=== PATIENT | female | born 1945 | race Caucasian/White ===

== ENCOUNTER 2019-03-21 00:19 | Day surgery (SDC) | payer MEDICARE, SELFPAY ==
[2019-03-19 09:25] VITALS: BMI 39.4
--- NOTE | 2019-03-21 08:51 | PM.HPGS ---
History of Present Illness History of Present Illness Consent: Risks, benefits, and alternatives have been discussed and questions answered. Patient agrees to proceed with procedure. Chief complaint: Hx Of Polyps Narrative: Lissette Austin is a 73 year old female with history of villous adenoma of the rectum [facility] Past Medical History Medical History Anemia Back pain CHF (congestive heart failure) Dementia DVT (deep venous thrombosis) Fractures elbow GERD (gastroesophageal reflux disease) Hypertension Joint pain Murmur Peripheral neuropathy Rectal polyp Sleep apnea Type 2 diabetes mellitus Urinary incontinence UTI (urinary tract infection) Surgical History Surgical History History of back surgery Hx of appendectomy Hx of cholecystectomy Family History Family History Mother Family history of diabetes mellitus in first degree relative Family history of coronary artery disease Family history of arthritis Family history of congestive heart failure Family history of heart disease in male family member before age 55 Diabetes mellitus Hypertension Father Family history of renal failure Family history of kidney disease Family history of arthritis Diabetes mellitus Grandparent Cerebrovascular accident Family history of hearing loss Sibling Family history of Alzheimer's disease Diabetes mellitus Other Family history of lupus erythematosus Family history of malignant neoplasm of breast Family history of malignant neoplasm of ovary Family history of obesity Social History Social History Smoking status: Never smoker Second hand tobacco smoke exposure: No Alcohol intake: never Substance use: never Substance use type: does not use Gender identity (if verbalized by the patient): Female Meds Home Medications and Allergies Home Medications Medication Instructions Recorded Confirmed Type aripiprazole 5 mg tablet 5 mg PO DAILY 12/18/18 03/19/19 History aspirin 81 mg tablet,delayed 81 mg PO DAILY 12/18/18 03/19/19 History release blood sugar diagnostic #10 each 12/18/18 History gabapentin 300 mg capsule 300 mg PO TID 12/18/18 03/19/19 History nystatin-triamcinolone 100,000 1 applic TOPICAL BID 12/18/18 03/19/19 History unit/g-0.1 % topical cream omega-3 acid ethyl esters 1 gram 1 cap PO TID cap 12/18/18 03/19/19 History capsule omeprazole 20 mg capsule,delayed 20 mg PO DAILY 12/18/18 03/19/19 History release pen needle, diabetic 32 gauge x #10 each 12/18/18 History insulin aspart U-100 100 unit/mL 8 unit SUB-Q TID #15 ml 12/28/18 03/19/19 Rx (3 mL) subcutaneous pen insulin detemir U-100 100 unit/mL 60 unit SUB-Q DAILY #15 ml 12/28/18 03/19/19 Rx (3 mL) subcutaneous pen atorvastatin 20 mg tablet 20 mg PO DAILY #30 tablet 02/13/19 03/19/19 Rx furosemide 20 mg tablet 10 mg PO QAM #30 tablet 02/13/19 03/19/19 Rx metoprolol tartrate 50 mg tablet 50 mg PO Q12H #180 tablet 02/18/19 03/19/19 Rx memantine 10 mg tablet 10 mg PO BID #60 tablet 02/21/19 03/19/19 Rx lancets 33 gauge #100 each 03/05/19 Rx pramipexole 1 mg tablet 1 mg PO BID #60 tablet 03/18/19 03/19/19 Rx buspirone 5 mg PO BID 03/19/19 03/19/19 History duloxetine [Cymbalta] 40 mg PO BID 03/19/19 03/19/19 History fesoterodine [Toviaz] 4 mg PO DAILY 03/19/19 03/19/19 History senna 8.6 mg PO BID 03/19/19 03/19/19 History Allergies Allergy/AdvReac Type Severity Reaction Status Date / Time adhesive tape Allergy Mild RASH Verified 03/19/19 09:18 lovastatin Allergy Mild RASH Verified 03/19/19 09:18 latex Allergy Unknown Unknown Verified 03/19/19 09:18 Penicillins Allergy Unknown RASH Verified 03/19/19 09:18 Exam Resp: Auscultation: clear to auscultation bilaterally Cardio: Rate
--- NOTE | 2019-03-21 09:15 | WPDANESEPPF ---
Anes - Initial Pre Proc Eval Procedure: Operation Date: 03/21/19 09:30 Proposed Procedures p Screening Colonoscopy - Gunner Andre MD Date/Time: 03/21/19 09:15 Surgeon: Gunner Andre MD Pre Op Diagnosis: Hx Of Polyps Patient Data Age: 73 Gender: F Height: 5 ft 6 in Weight: 111 kg Allergies Allergy/AdvReac Type Severity Reaction Status Date / Time adhesive tape Allergy Mild RASH Verified 03/21/19 09:15 lovastatin Allergy Mild RASH Verified 03/21/19 09:15 latex Allergy Unknown Unknown Verified 03/21/19 09:15 Penicillins Allergy Unknown RASH Verified 03/21/19 09:15 Home Medications Medication Instructions Recorded Confirmed Type aripiprazole 5 mg tablet 5 mg PO DAILY 12/18/18 03/19/19 History aspirin 81 mg tablet,delayed 81 mg PO DAILY 12/18/18 03/19/19 History release blood sugar diagnostic #10 each 12/18/18 History gabapentin 300 mg capsule 300 mg PO TID 12/18/18 03/19/19 History nystatin-triamcinolone 100,000 1 applic TOPICAL BID 12/18/18 03/19/19 History unit/g-0.1 % topical cream omega-3 acid ethyl esters 1 gram 1 cap PO TID cap 12/18/18 03/19/19 History capsule omeprazole 20 mg capsule,delayed 20 mg PO DAILY 12/18/18 03/19/19 History release pen needle, diabetic 32 gauge x #10 each 12/18/18 History insulin aspart U-100 100 unit/mL 8 unit SUB-Q TID #15 ml 12/28/18 03/19/19 Rx (3 mL) subcutaneous pen insulin detemir U-100 100 unit/mL 60 unit SUB-Q DAILY #15 ml 12/28/18 03/19/19 Rx (3 mL) subcutaneous pen atorvastatin 20 mg tablet 20 mg PO DAILY #30 tablet 02/13/19 03/19/19 Rx furosemide 20 mg tablet 10 mg PO QAM #30 tablet 02/13/19 03/19/19 Rx metoprolol tartrate 50 mg tablet 50 mg PO Q12H #180 tablet 02/18/19 03/19/19 Rx memantine 10 mg tablet 10 mg PO BID #60 tablet 02/21/19 03/19/19 Rx lancets 33 gauge #100 each 03/05/19 Rx pramipexole 1 mg tablet 1 mg PO BID #60 tablet 03/18/19 03/19/19 Rx buspirone 5 mg PO BID 03/19/19 03/19/19 History duloxetine [Cymbalta] 40 mg PO BID 03/19/19 03/19/19 History fesoterodine [Toviaz] 4 mg PO DAILY 03/19/19 03/19/19 History senna 8.6 mg PO BID 03/19/19 03/19/19 History Patient hx anesthesia problems: none Family hx anesthesia problems: none PMFSH Past Medical History Medical History Anemia Back pain CHF (congestive heart failure) Dementia DVT (deep venous thrombosis) Fractures elbow GERD (gastroesophageal reflux disease) Hypertension Joint pain Murmur Peripheral neuropathy Rectal polyp Sleep apnea Type 2 diabetes mellitus Urinary incontinence UTI (urinary tract infection) Surgical History Surgical History History of back surgery Hx of appendectomy Hx of cholecystectomy Family History Family History Mother Family history of diabetes mellitus in first degree relative Family history of coronary artery disease Family history of arthritis Family history of congestive heart failure Family history of heart disease in male family member before age 55 Diabetes mellitus Hypertension Father Family history of renal failure Family history of kidney disease Family history of arthritis Diabetes mellitus Grandparent Cerebrovascular accident Family history of hearing loss Sibling Family history of Alzheimer's disease Diabetes mellitus Other Family history of lupus erythematosus Family history of malignant neoplasm of breast Family history of malignant neoplasm of ovary Family history of obesity Social History Social History Smoking status: Never smoker Second hand tobacco smoke exposure: No Alcohol intake: never Substance use: never Substance use type: does not use Gender identity (if verbalized by the patient): Female Anes - Eval Final PreProcedure Day of Procedure
[2019-03-21] MEDS: LACTATED RINGERS 1,000 ML 150 ML IV CONT (09:19)
[2019-03-21 09:25] VITALS: BP 113/50; PULSE 58; RESP 18; TEMP 36.4; O2SAT 100; BMI 39.6
[2019-03-21 09:36] LABS: Glucose Point of Care 109 (65-105)
[2019-03-21 09:48] VITALS: BP 97/47; PULSE 53; RESP 18; O2SAT 96
[2019-03-21 10:01] VITALS: BP 115/64; PULSE 55; RESP 23; O2SAT 100
[2019-03-21 10:08] VITALS: BP 122/63; PULSE 56; RESP 25; O2SAT 98
[2019-03-21 10:23] LABS: Glucose Point of Care 99 (65-105)
== END 2019-03-21 10:27 | disposition home or self-care (01) ==
PROVIDERS: PCP Family Medicine; Visit Provider Internal Medicine Gastroenterology
PROC: 0DJD8ZZ Inspection of Lower Intestinal Tract, Via Natural or Artificial Opening Endoscopic (ICD-10-PCS; CPT 45378; principal; 2019-03-21 09:30)
DX: Z12.11 Encounter for screening for malignant neoplasm of colon (principal); D12.8 Benign neoplasm of rectum; K64.8 Other hemorrhoids; K57.30 Diverticulosis of large intestine without perforation or abscess without bleeding; I11.0 Hypertensive heart disease with heart failure; I50.9 Heart failure, unspecified; F03.90 Unspecified dementia, unspecified severity, without behavioral disturbance, psychotic disturbance, mood disturbance, and anxiety; K21.9 Gastro-esophageal reflux disease without esophagitis; E11.40 Type 2 diabetes mellitus with diabetic neuropathy, unspecified; D64.9 Anemia, unspecified; G47.30 Sleep apnea, unspecified; R32 Unspecified urinary incontinence; Z86.718 Personal history of other venous thrombosis and embolism; Z79.4 Long term (current) use of insulin; Z79.82 Long term (current) use of aspirin; E66.01 Morbid (severe) obesity due to excess calories; Z68.39 Body mass index [BMI] 39.0-39.9, adult
CPT/HCPCS: 45385; 88305; J2704; J7120

== ENCOUNTER 2019-04-01 09:38 | Outpatient (CLI) | payer MEDICARE, SELFPAY ==
[2019-04-01 10:25] LABS: Blood Urea Nitrogen 22 mg/dL (7-17); Calcium 9.1 mg/dL (8.4-10.2); Carbon Dioxide 30 mmol/L (22-30); Chloride 101 mmol/L (98-107); Estimated Glomerular Filt Rate 48; Glucose 238 mg/dL (65-105); Potassium 4.5 mmol/L (3.4-5.0); Sodium 143 mmol/L (137-145)
== END 2019-04-01 09:39 | disposition home or self-care (01) ==
PROVIDERS: PCP Family Medicine; Visit Provider Internal Medicine Cardiovascular Disease
DX: N18.3 Chronic kidney disease, stage 3 (moderate) (principal); I12.9 Hypertensive chronic kidney disease with stage 1 through stage 4 chronic kidney disease, or unspecified chronic kidney disease
CPT/HCPCS: 36415; 80048

== ENCOUNTER 2019-06-14 14:47 | Outpatient (CLI) | payer MEDICARE, SELFPAY ==
[2019-06-14 15:29] LABS: Blood Urea Nitrogen 68 mg/dL (7-17); Calcium 8.6 mg/dL (8.4-10.2); Carbon Dioxide 17 mmol/L (22-30); Chloride 105 mmol/L (98-107); Estimated Glomerular Filt Rate 16; Glucose 337 mg/dL (65-105); Potassium 5.7 mmol/L (3.4-5.0); Sodium 134 mmol/L (137-145)
== END 2019-06-14 14:48 | disposition home or self-care (01) ==
PROVIDERS: PCP Family Medicine; Visit Provider Physician Assistant
DX: N18.3 Chronic kidney disease, stage 3 (moderate) (principal); R31.9 Hematuria, unspecified
CPT/HCPCS: 36415; 80048

== ENCOUNTER 2019-06-17 15:56 | Outpatient (CLI) | payer MEDICARE, SELFPAY ==
[2019-06-17 16:31] LABS: Basophils Percent Auto 0.5 % (0.2-1.2); Eosinophils Absolute Auto 0.1 K/mm3 (0-0.3); Eosinophils Percent Auto 1.1 % (0-4.4); Hemoglobin 12.1 g/dL (12.0-15.0); Immature Granulocyte Absolute 0.06 K/mm3 (0.00-0.031); Immature Granulocyte Percent A 0.8 % (0-0.5); Lymphocytes Absolute Auto 1.93 K/mm3 (0.9-3.2); Lymphocytes Percent Auto 24.6 % (18.3-44.2); Mean Corpuscular HGB Conc 31.8 g/dl (32-36); Mean Corpuscular Hemoglobin 30.1 pg (26-34); Mean Corpuscular Volume 94.5 fl (80-100); Mean Platelet Volume 10.7 fl (7.4-10.4); Monocytes Absolute Auto 0.7 K/mm3 (0.1-0.6); Monocytes Percent Auto 8.4 % (2.6-8.5); Neutrophils Absolute Auto 5.1 K/mm3 (1.3-6.7); Neutrophils Percent Auto 64.6 % (45.5-73.1); Platelet Count Result 233 k/mm3 (150-375); Red Blood Count 4.02 M/mm3 (4.2-5.4); Red Cell Distribution Width 15.7 % (11.5-14.5); White Blood Count 7.9 K/mm3 (4.5-10.0)
[2019-06-17 16:42] LABS: Alanine Aminotransferase 18 U/L (4-35); Albumin Level 4.5 g/dL (3.5-5.1); Alkaline Phosphatase 118 U/L (38-126); Aspartate Amino Transferase 21 U/L (14-36); Bilirubin,Total 1.1 mg/dL (0.2-1.3); Blood Urea Nitrogen 59 mg/dL (7-17); Calcium 9.3 mg/dL (8.4-10.2); Carbon Dioxide 26 mmol/L (22-30); Chloride 101 mmol/L (98-107); Estimated Glomerular Filt Rate 23; Glucose 313 mg/dL (65-105); Potassium 5.4 mmol/L (3.4-5.0); Sodium 137 mmol/L (137-145)
== END 2019-06-17 15:57 | disposition home or self-care (01) ==
PROVIDERS: PCP Family Medicine; Visit Provider Physician Assistant
DX: N18.3 Chronic kidney disease, stage 3 (moderate) (principal); K92.1 Melena
CPT/HCPCS: 36415; 80053; 85025

== ENCOUNTER 2019-06-19 15:10 | Outpatient (CLI) | payer MEDICARE, SELFPAY ==
[2019-06-19 15:35] LABS: Add Urine Microscopic? YES; Appearance Urine Cloudy (Clear); Bacteria Urine Trace /hpf; Bilirubin Urine Negative (Negative); Blood Urine 3+ (Negative); Color Urine Yellow (Yellow); Glucose Urine UA 3+ mg/dL (Negative); Ketones Urine Negative (Negative); Leukocyte Esterase Ur 3+ LEU/UL (NEGATIVE); Mucus Urine Rare /lpf; Nitrate Urine Negative (Negative); Protein Urine 2+ mg/dL (Negative); RBC Urine >75 /hpf (0-2); Specific Grav Ur 1.013 (1.001-1.035); Squamous Epithelial Cell Urine Many /hpf (Few); Urobilinogen Urine Negative mg/dL (<2.0); WBC Urine >75 /hpf (0-3)
== END 2019-06-19 15:11 | disposition home or self-care (01) ==
PROVIDERS: PCP Family Medicine; Visit Provider Physician Assistant
DX: R30.0 Dysuria (principal); N39.0 Urinary tract infection, site not specified
CPT/HCPCS: 81001; 87086; 87088

== ENCOUNTER 2019-06-20 15:25 | Inpatient (IN) | payer MEDICARE, SELFPAY ==
--- NOTE | ~2019-06-20 | XR_ITS ---
EXAMINATION: XR abdomen/kub 1V EXAM DATE: 06/20/2019 16:58 INDICATION: Unable to urinate. Constipation. TECHNIQUE: Frontal projection(s) of the abdomen for interpretation. There is no prior study for alessandra martell. FINDINGS: There is moderate amount of colonic s0tool and gas. No small bowel dilation, nonobstructi ve bowel gas pattern. Scattered pelvic calcifications. No calcifications overlying the renal contour s. There are cholecystectomy clips. There is no organomegaly suspected. There are bony degenerati ve changes. IMPRESSION: Moderate amount of colonic stool. Reviewed, dictated and finalized at location A.
[2019-06-20 15:34] VITALS: BP 112/50; PULSE 73; RESP 18; TEMP 37.1; O2SAT 95
[2019-06-20 15:50] VITALS: BP 112/50; PULSE 73; RESP 16; TEMP 37.1; O2SAT 95
--- NOTE | 2019-06-20 16:22 | ED.FEMALEGU ---
HPI - Female Genitourinary General Chief complaint: Recheck/Abnormal Lab/Rx Stated complaint: decreased kidney function Time Seen by Provider: 06/20/19 15:49 Source: patient Mode of arrival: ambulatory Limitations: no limitations History of Present Illness HPI Narrative: Patient is a 74-year-old female who presents to the emergency department with complaint of difficulty urinating. Patient states she has had significant difficulty urinating over the past 2 days. Patient was able to produce a tiny amount of urine for sample yesterday, but otherwise has not been able to urinate. Patient had bladder scan showing over 500 mL of urine on arrival to the ED and Anna catheter was placed with return of roughly 500 mL of urine. Patient reports she has had some dysuria recently. She also reports some low back pain and has noticed some issues with constipation. Patient denies any fever or recent illness symptoms. On review of medical records, patient was seen by primary care provider on 06/14/2023 dysuria. Per their notes, patient was treated with Cipro for UTI in April. Patient had reported urinary incontinence and nocturia at that time. PA at her primary care physician's office started her on Bactrim DS twice daily for 5 days and that they would recheck a urine sample after she completed treatment. It does not appear the patient was able to provide a sample before starting antibiotics. Patient had labs checked which showed elevated potassium and decreasing GFR. Antibiotic was switched from Bactrim DS to Cipro 500 mg twice daily for 5 days. Note made the patient be referred to nephrology for her increasing creatinine and decreasing GFR. MD elicited complaint: difficulty urinating Related Data Home Medications Medication Instructions Recorded Confirmed aripiprazole 5 mg tablet 5 mg PO DAILY 12/18/18 03/19/19 aspirin 81 mg tablet,delayed 81 mg PO DAILY 12/18/18 03/19/19 release blood sugar diagnostic #10 each 12/18/18 nystatin-triamcinolone 100,000 1 applic TOPICAL BID 12/18/18 03/19/19 unit/g-0.1 % topical cream omeprazole 20 mg capsule,delayed 20 mg PO DAILY 12/18/18 03/19/19 release pen needle, diabetic 32 gauge x #10 each 12/18/18 buspirone 5 mg PO BID 03/19/19 03/19/19 duloxetine [Cymbalta] 40 mg PO BID 03/19/19 03/19/19 senna 8.6 mg PO BID 03/19/19 03/19/19 Allergies Allergy/AdvReac Type Severity Reaction Status Date / Time adhesive tape Allergy Mild RASH Verified 06/20/19 15:54 lovastatin Allergy Mild RASH Verified 06/20/19 15:54 latex Allergy Unknown Unknown Verified 06/20/19 15:54 Penicillins Allergy Unknown RASH Verified 06/20/19 15:54 Review of Systems Review of Systems: All systems reviewed & are unremarkable except as noted in HPI and below Constitutional: Constitutional: Denies fever(s) Gastrointestinal: Gastrointestinal: Reports constipation Genitourinary: Genitourinary: Reports dysuria Musculoskeletal: Musculoskeletal: Reports back pain PMFSH Past Medical History Medical History Anemia Back pain Bloody stools CHF (congestive heart failure) CKD (chronic kidney disease), stage III Dementia DVT (deep venous thrombosis) Dysuria Fractures elbow GERD (gastroesophageal reflux disease) Hypertension Joint pain Murmur Peripheral neuropathy Rectal polyp Sleep apnea Type 2 diabetes mellitus Urinary incontinence UTI (urinary tract infection) Surgical History Surgical History History of back surgery Hx of appendectomy Hx of cholecystectomy Social History Social History Smoking status: Never smoker Second hand tobacco smoke exposure: No Alcohol intake: never Substance use: never Substance use type: does not use Gender identity (if verbalized by the patient): Female Exam Const: General: cooperati
[2019-06-20 16:38] LABS: Basophils Percent Auto 0.5 % (0.2-1.2); Eosinophils Absolute Auto 0.2 K/mm3 (0-0.3); Eosinophils Percent Auto 2.6 % (0-4.4); Hematocrit 34.5 % (37.0-47.0); Hemoglobin 10.9 g/dL (12.0-15.0); Immature Granulocyte Percent A 1.2 % (0-0.5); Lymphocytes Absolute Auto 2.23 K/mm3 (0.9-3.2); Lymphocytes Percent Auto 26.3 % (18.3-44.2); Mean Corpuscular HGB Conc 31.6 g/dl (32-36); Mean Corpuscular Hemoglobin 30.4 pg (26-34); Mean Corpuscular Volume 96.1 fl (80-100); Mean Platelet Volume 11.1 fl (7.4-10.4); Monocytes Absolute Auto 0.6 K/mm3 (0.1-0.6); Monocytes Percent Auto 7.5 % (2.6-8.5); Neutrophils Absolute Auto 5.3 K/mm3 (1.3-6.7); Neutrophils Percent Auto 61.9 % (45.5-73.1); Platelet Count Result 247 k/mm3 (150-375); Red Blood Count 3.59 M/mm3 (4.2-5.4); Red Cell Distribution Width 15.7 % (11.5-14.5); White Blood Count 8.5 K/mm3 (4.5-10.0)
[2019-06-20 16:43] LABS: Add Urine Microscopic? YES; Appearance Urine Cloudy (Clear); Bacteria Urine Trace /hpf; Bilirubin Urine Negative (Negative); Blood Urine 3+ (Negative); Color Urine Yellow (Yellow); Glucose Urine UA 3+ mg/dL (Negative); Ketones Urine Negative (Negative); Leukocyte Esterase Ur 3+ LEU/UL (Negative); Mucus Urine Rare /lpf; Nitrate Urine Negative (Negative); Protein Urine 2+ mg/dL (Negative); RBC Urine >75 /hpf (0-2); Specific Grav Ur 1.012 (1.001-1.035); Squamous Epithelial Cell Urine Many /hpf (Few); Urobilinogen Urine Negative mg/dL (<2.0); WBC Urine >75 /hpf
[2019-06-20 16:54] LABS: Alanine Aminotransferase 16 U/L (4-35); Albumin Level 4.2 g/dL (3.5-5.1); Alkaline Phosphatase 101 U/L (38-126); Aspartate Amino Transferase 21 U/L (14-36); Bilirubin,Total 0.9 mg/dL (0.2-1.3); Blood Urea Nitrogen 63 mg/dL (7-17); Carbon Dioxide 25 mmol/L (22-30); Chloride 103 mmol/L (98-107); Estimated CRCL calculation 20 ml/min; Estimated Glomerular Filt Rate 17; Glucose 267 mg/dL (65-105); Potassium 5.6 mmol/L (3.4-5.0); Sodium 137 mmol/L (137-145)
[2019-06-20 17:12] VITALS: BP 125/60; PULSE 70; RESP 16; O2SAT 99
[2019-06-20 17:15] VITALS: RESP 16
[2019-06-20 19:44] VITALS: BP 110/64; PULSE 69; RESP 16; TEMP 36.1; O2SAT 95
[2019-06-20 21:03] VITALS: BP 139/68; PULSE 68; RESP 20; TEMP 36.5; O2SAT 95; BMI 40.0
[2019-06-20] MEDS: SODIUM CHLORIDE 0.9% IV 1,000 ML 125 ML IV CONT (21:12)
--- NOTE | 2019-06-20 22:18 | ADMGEN ---
This patient, Lissette Austin, was admitted to Medical Room 349-01. Patient/family oriented to hospital policies and general routines including ID bracelet, bed and alarms, visiting hours, pain management, procedures, bathroom and other care routines, personal items, smoking policy, room service/diet, and visiting hours. Valuables list has been completed. Information on how to activate the Rapid Response Team has been discussed. Patient/Family are encouraged to report perceived risks to care and to ask questions if they do not understand what they are told or what they should do.
[2019-06-21 06:00] VITALS: BP 104/64; PULSE 77; RESP 16; TEMP 36.5; O2SAT 90
--- NOTE | 2019-06-21 06:16 | PM.IMHP ---
H&P: HPI History of Present Illness Chief complaint: Unable to urinate for 32 hours Narrative: Date and time of patient contact: 06/21/2019 at 6:45 a.m. Lissette Austin is a 74 year old female with a past medical history of uncontrolled insulin-dependent diabetes, stress urinary incontinence, bladder prolapse, and chronic kidney disease stage 3 who presented to the ER with urinary retention for at least 32 hours. The patient reports that she has been having a week or 2 (if not more) of sensation of incomplete bladder emptying, and urinary frequency. She denied any increased urinary urgency. She has been having some dysuria for the last 4-5 days. She reports that the only way she has been able to have any urine output is to stand a straight up and then she may be able to dribble a little bit of urine on to her incontinence pad. Over the last day or 2 prior to coming to the ER her bladder was becoming progressively more uncomfortable. She has been having difficulty having a bowel movement for several days in the seems to correlate to when her bladder feels more full. She denies any hematuria. She reports that her abdominal pain has resolved now that she has a Anna catheter in place. She has had approximately 2.5 L of urine output since catheter was placed in the ER. She had 1.1 L urine output prior to arriving on the medical floor. She denies any current hematochezia or melena but did have colonoscopy due to bloody stools in March 2019. She has been noticing some chills over the last few days but denies any rigors or fever. She denies any cough, congestion or recent ill contacts. She does have chronic lower extremity edema but does not think it is worse than usual. She reports tenderness to palpation of her legs but this again is not unusual as she has peripheral neuropathy. She admits that her glucoses when she has checked them have been in the mid to high 200s. She has not been checking her glucoses as often as she should. She states that when her machine reads error she then has difficulty getting blood to repeat the test. She reports that she was started on Toviaz several months ago. She went to a specialist who then discontinued her Toviaz. Her primary care physician then placed her back on Toviaz. She reports that her urinary symptoms had worsened after being placed back on Toviaz. However she does not recall when her Toviaz was restarted. Review of Systems Review of Systems: Narrative: 12 systems were reviewed with pertinent positives and negatives per HPI. Except as documented in the HPI, all other systems were reviewed and are negative. [facility] Past Medical History Medical History (Updated 06/21/19 @ 09:02 by Winsome Luna DO) Anemia ASD (atrial septal defect) [id number] shunt noted on echocardiogram from October 2017 Back pain Bladder prolapse CHF (congestive heart failure) Diastolic congestive heart failure with echocardiogram noting grade 1 diastolic dysfunction, EF of 71%, mild LVH and mild left atrial enlargement October 2017 Chronic venous stasis dermatitis Bilateral CKD (chronic kidney disease), stage III Dementia Diverticulosis DVT (deep venous thrombosis) Right lower extremity November 2016 Female stress incontinence Frequent UTI Gastro-esophageal reflux disease without esophagitis HLD (hyperlipidemia) Hypertension Murmur NIURKA (obstructive sleep apnea) Noncompliant with CPAP therapy however had sleep study around 2005 recommended CPAP of 18 Osteopenia PVD (peripheral vascular disease) Rectal polyp RLS (restless legs syndrome) Seasonal allergic rhinitis Severe episode of recurrent major depressive disorder, without psychotic features Sleep apnea Type 2 diabetes mellitus On long-term insulin therapy Type 2 diabetes mellitus with diabetic nephropathy Vitamin D deficiency Surgical History Surgical History (Updated 06/21/19 @ 08:36 by Winsome Luna DO) Fractures elbow status post ROSAMARIA
[2019-06-21] MEDS: SODIUM CHLORIDE 0.9% IV 1,000 ML 125 ML IV CONT ×2 (06:21→14:16)
[2019-06-21 07:46] LABS: Glucose Point of Care 309 (65-105)
[2019-06-21] MEDS: INSULIN ASPART (*BKC) 100 UNITS/ML 7 UNITS SUB-Q ×3 (07:52→17:33)
[2019-06-21] MEDS: INSULIN ASPART (*BKC) 100 UNITS/ML SUB-Q ×3 (07:53→17:34)
[2019-06-21 08:39] VITALS: PULSE 77
[2019-06-21] MEDS: MEMANTINE 10 MG TABLET PO ×2 (08:39→21:49)
[2019-06-21] MEDS: OMEGA 3 POLYUNSAT FATTY ACIDS 1 GM CAP PO ×3 (08:39→17:35)
[2019-06-21] MEDS: METOPROLOL TARTRATE 50 MG TAB PO ×2 (08:39→21:49)
[2019-06-21] MEDS: PRAMIPEXOLE 1 MG TABLET PO ×2 (08:40→21:48)
[2019-06-21] MEDS: PANTOPRAZOLE 40 MG TABLET PO (08:40)
[2019-06-21] MEDS: GABAPENTIN 300 MG CAPSULE PO ×3 (08:40→17:35)
[2019-06-21] MEDS: ASPIRIN 81 MG ENTERIC TABLET PO (08:40)
[2019-06-21] MEDS: DULOXETINE HCL 20 MG CAPSULE.DR 40 MG PO ×2 (08:40→21:49)
[2019-06-21] MEDS: SENNOSIDES 8.6 MG TABLET PO ×2 (08:40→21:48)
[2019-06-21] MEDS: ATORVASTATIN 20 MG TABLET PO (08:40)
[2019-06-21] MEDS: busPIRone HCL 5 MG TABLET PO ×2 (08:40→21:49)
[2019-06-21] MEDS: ARIPIPRAZOLE 5 MG TABLET PO (08:40)
[2019-06-21] MEDS: TOLNAFTATE 1% POWDER 45 GM BTL 1 APPLIC TOPICAL ×2 (08:41→21:45)
[2019-06-21 09:24] LABS: Hematocrit 33.4 % (37.0-47.0); Hemoglobin 10.4 g/dL (12.0-15.0); Mean Corpuscular HGB Conc 31.1 g/dl (32-36); Mean Corpuscular Hemoglobin 29.9 pg (26-34); Mean Platelet Volume 11.4 fl (7.4-10.4); Platelet Count Result 217 k/mm3 (150-375); Red Blood Count 3.48 M/mm3 (4.2-5.4); Red Cell Distribution Width 15.9 % (11.5-14.5); White Blood Count 7.1 K/mm3 (4.5-10.0)
[2019-06-21 10:50] LABS: Blood Urea Nitrogen 46 mg/dL (7-17); Calcium 8.7 mg/dL (8.4-10.2); Carbon Dioxide 21 mmol/L (22-30); Chloride 108 mmol/L (98-107); Estimated CRCL calculation 34 ml/min; Estimated Glomerular Filt Rate 31; Glucose 294 mg/dL (65-105); Potassium 4.8 mmol/L (3.4-5.0); Sodium 138 mmol/L (137-145)
[2019-06-21 11:04] LABS: Hemoglobin A1C 10.1 % (<5.7)
[2019-06-21 11:31] LABS: Glucose Point of Care 324 (65-105)
--- NOTE | 2019-06-21 12:29 | PM.IMPN ---
Progress Note: A&P Assessment and Plan (1) Acute on chronic kidney failure: Code(s): N17.9 - Acute kidney failure, unspecified; N18.9 - Chronic kidney disease, unspecified Status: Acute Assessment and Plan: Most likely due to urinary retention. 06/20 creatinine improved from 2.7-1.6 with decompression of bladder by Anna catheter. (2) Acute UTI: Code(s): N39.0 - Urinary tract infection, site not specified Status: Acute Assessment and Plan: At least in part due to urinary retention. Urine cultures pending. Day 2 ceftriaxone (3) Type 2 diabetes mellitus with hyperglycemia: Code(s): E11.65 - Type 2 diabetes mellitus with hyperglycemia Status: Acute Assessment and Plan: A1c 10.1 Home regimen with sliding scale (4) NIURKA (obstructive sleep apnea): Code(s): G47.33 - Obstructive sleep apnea (adult) (pediatric) Status: Acute Assessment and Plan: Patient currently to client's CPAP use (5) Acute urinary retention: Code(s): R33.8 - Other retention of urine Status: Acute Assessment and Plan: Avoid anticholinergics. Subjective Date/time seen: 06/21/19 12:29 Interval history: Admitted 06/19 with urinary tract infection 515 tolerated diet. Denied pain. No chest discomfort or shortness of breath. No edema. No abdominal pain. No dysuria or hematuria. No diarrhea constipation. No rectal bleeding. Review of Systems Review of Systems: All systems reviewed & are unremarkable except as noted in HPI and below Exam Narrative: Exam Narrative: HEENT: EOMI, PERRL, sclerae nonicteric, pharyngeal mucosa pink and intact NECK: No JVD CHEST: Clear to auscultation. Normal effort. HEART: NL S1/S2, regular, no murmur ABDOMEN: BS+, soft, nontender, no mass, no bruits EXTREMITIES: No cyanosis, edema, or clubbing NEUROLOGIC: CN intact and symmetric to inspection. MUSCULOSKELETAL: Tone and strength symmetric. PSYCH: Alert. Oriented to person, place, and time. Objective Data Vital Signs Vital Signs: Vital Signs - 24 hr 06/20/19 15:34 06/20/19 15:50 06/20/19 17:12 Temperature 98.8 F 98.8 F Pulse Rate 73 73 70 Respiratory Rate 18 16 16 Blood Pressure 112/50 L 112/50 L 125/60 Pulse Oximetry 95 95 99 06/20/19 17:15 06/20/19 19:44 06/20/19 21:03 Temperature 97 F L 97.7 F Pulse Rate 69 68 Respiratory Rate 16 16 20 Blood Pressure 110/64 139/68 Pulse Oximetry 95 95 06/21/19 06:00 06/21/19 08:39 Temperature 97.7 F Pulse Rate 77 77 Respiratory Rate 16 Blood Pressure 104/64 Pulse Oximetry 90 Intake/Output Intake/Output: Intake & Output 06/18/19 06/19/19 06/20/19 06/21/19 23:59 23:59 23:59 23:59 Intake Total 50 1740 Output Total 1100 1650 Balance -1050 90 Meds/Results Medications: Active Medications Generic Name Dose Route Start Last Admin Trade Name Freq PRN Reason Stop Dose Admin Aripiprazole 5 mg 06/21/19 09:00 06/21/19 08:40 Abilify PO 5 mg DAILY LUPE Administration Aspirin 81 mg 06/21/19 09:00 06/21/19 08:40 Aspirin Ec PO 81 mg DAILY LUPE Administration Atorvastatin Calcium 20 mg 06/21/19 09:00 06/21/19 08:40 Lipitor PO 20 mg DAILY LUPE Administration Buspirone HCl 5 mg 06/21/19 09:00 06/21/19 08:40 Buspar PO 5 mg Q12HR LUPE Administration Dextrose 12.5 gm 06/21/19 06:12 Dextrose 50% Syringe IV PUSH PRN PRN Hypoglycemia Protocol Duloxetine HCl 40 mg 06/21/19 09:00 06/21/19 08:40 Cymbalta PO 40 mg Q12HR LUPE Administration Fish Oil 1 gm 06/21/19 09:00 06/21/19 08:39 Lovaza PO 1 gm TID LUPE Administration Gabapentin 300 mg 06/21/19 09:00 06/21/19 08:40 Neurontin PO 300 mg TID LUPE Administration Glucagon 1 mg 06/21/19 06:12 Glucagon For Inj IM PRN PRN Hypoglycemia Protocol Glucose 15 gm 06/21/19 06:12 Glutose 15 PO PRN PRN Hypoglycemia
[2019-06-21 14:26] VITALS: BP 116/50; PULSE 70; RESP 18; TEMP 35.7; O2SAT 98
[2019-06-21 16:29] LABS: Glucose Point of Care 250 (65-105)
[2019-06-21 20:33] VITALS: BP 151/70; PULSE 79; RESP 18; TEMP 36.2; O2SAT 92
[2019-06-21 21:49] VITALS: PULSE 79
[2019-06-21] MEDS: INSULIN DETEMIR 100 UNITS/ML 60 UNITS SUB-Q (21:50)
[2019-06-21 22:00] VITALS: PULSE 79; RESP 18; O2SAT 92
[2019-06-21 22:14] LABS: Glucose Point of Care 266 (65-105)
[2019-06-22 04:40] VITALS: BP 147/85; PULSE 68; RESP 20; TEMP 37.2; O2SAT 94
[2019-06-22 06:20] LABS: Hematocrit 35.6 % (37.0-47.0); Hemoglobin 11.4 g/dL (12.0-15.0); Mean Corpuscular Hemoglobin 30.2 pg (26-34); Mean Corpuscular Volume 94.4 fl (80-100); Mean Platelet Volume 10.8 fl (7.4-10.4); Platelet Count Result 214 k/mm3 (150-375); Red Blood Count 3.77 M/mm3 (4.2-5.4); Red Cell Distribution Width 15.7 % (11.5-14.5)
[2019-06-22 06:40] LABS: Blood Urea Nitrogen 30 mg/dL (7-17); Calcium 9.2 mg/dL (8.4-10.2); Carbon Dioxide 22 mmol/L (22-30); Chloride 108 mmol/L (98-107); Estimated CRCL calculation 49 ml/min; Estimated Glomerular Filt Rate 48; Glucose 264 mg/dL (65-105); Potassium 5.1 mmol/L (3.4-5.0); Sodium 138 mmol/L (137-145)
[2019-06-22 08:18] LABS: Glucose Point of Care 235 (65-105)
[2019-06-22 08:38] VITALS: PULSE 68
[2019-06-22] MEDS: METOPROLOL TARTRATE 50 MG TAB PO (08:38)
[2019-06-22] MEDS: GABAPENTIN 300 MG CAPSULE PO (08:39)
[2019-06-22] MEDS: SENNOSIDES 8.6 MG TABLET PO (08:39)
[2019-06-22] MEDS: DULOXETINE HCL 20 MG CAPSULE.DR 40 MG PO (08:40)
[2019-06-22] MEDS: PRAMIPEXOLE 1 MG TABLET PO (08:40)
[2019-06-22] MEDS: PANTOPRAZOLE 40 MG TABLET PO (08:40)
[2019-06-22] MEDS: MEMANTINE 10 MG TABLET PO (08:40)
[2019-06-22] MEDS: ARIPIPRAZOLE 5 MG TABLET PO (08:40)
[2019-06-22] MEDS: busPIRone HCL 5 MG TABLET PO (08:40)
[2019-06-22] MEDS: ATORVASTATIN 20 MG TABLET PO (08:40)
[2019-06-22] MEDS: TOLNAFTATE 1% POWDER 45 GM BTL 1 APPLIC TOPICAL (08:40)
[2019-06-22] MEDS: ASPIRIN 81 MG ENTERIC TABLET PO (08:40)
[2019-06-22] MEDS: INSULIN ASPART (*BKC) 100 UNITS/ML 7 UNITS SUB-Q ×2 (08:40→12:06)
[2019-06-22] MEDS: INSULIN ASPART (*BKC) 100 UNITS/ML SUB-Q ×2 (08:41→12:06)
--- NOTE | 2019-06-22 10:41 | PM.DS ---
DS: Summary Hospital Course Reason for hospitalization: unable to urinate Hospital Course: Found to have JUSTIN, UTI, acute urinary retention. Responded to [place], ceftriaxone, holding anticholinergic drugs. Creatinine normalized. On day of discharged did well with voiding trial. Tolerated diet. Time Spent with Patient Time attestation: Total time spent providing and/or coordinating discharge services: Time spent: Greater than 30 minutes Exam Narrative: Exam Narrative: HEENT: EOMI, PERRL, sclerae nonicteric, pharyngeal mucosa pink and intact NECK: No JVD CHEST: Clear to auscultation. Normal effort. HEART: NL S1/S2, regular, no murmur ABDOMEN: BS+, soft, nontender, no mass, no bruits EXTREMITIES: No cyanosis, edema, or clubbing NEUROLOGIC: CN intact and symmetric to inspection. MUSCULOSKELETAL: Tone and strength symmetric. PSYCH: Alert. Oriented to person, place, and time. DS: Data Data Completed and Pending Labs on day of discharge: Labs from last 24 hours 06/22/19 06/22/19 06/22/19 08:16 05:55 05:55 WBC 9.0 RBC 3.77 L Hgb 11.4 L Hct 35.6 L MCV 94.4 MCH 30.2 MCHC 32.0 RDW 15.7 H Plt Count 214 MPV 10.8 H Sodium 138 Potassium 5.1 H Chloride 108 H Carbon Dioxide 22 BUN 30 H D Creatinine 1.10 H Estim Creat Clear Calc 49 Estimated GFR 48 L Glucose 264 H POC Capillary Glucose 235 H Hemoglobin A1c Calcium 9.2 06/21/19 06/21/19 06/21/19 21:45 16:25 11:28 WBC RBC Hgb Hct MCV MCH MCHC RDW Plt Count MPV Sodium Potassium Chloride Carbon Dioxide BUN Creatinine Estim Creat Clear Calc Estimated GFR Glucose POC Capillary Glucose 266 H 250 H 324 H Hemoglobin A1c Calcium 06/21/19 06/21/19 08:28 08:28 WBC RBC Hgb Hct MCV MCH MCHC RDW Plt Count MPV Sodium 138 Potassium 4.8 Chloride 108 H Carbon Dioxide 21 L BUN 46 H D Creatinine 1.60 H Estim Creat Clear Calc 34 Estimated GFR 31 L Glucose 294 H POC Capillary Glucose Hemoglobin A1c 10.1 H Calcium 8.7 Discharge Plan Discharge Consulting providers: Jose Morel ; Winsome Luna Discharging Clinician: Huber Larsen Patient Disposition: Home, Self-Care Activity: as tolerated Diet: diabetic Patient Instructions: Antibiotic Form, Urinary Tract Infection in Women (DC) Stand Alone Forms: General Discharge Information Follow-up/Referrals: Keenan Jaime MD [Primary Care Provider] - Call for Appointment Discharge Medications: New tolnaftate 1 % Powder 1 applic topical Q12HR Qty: 100 RF: 0 Continued aripiprazole [Abilify] 5 mg tablet 5 mg PO DAILY RF: 0 omeprazole 20 mg capsule,delayed release(DR/EC) 20 mg PO DAILY RF: 0 aspirin 81 mg tablet,delayed release (DR/EC) 81 mg PO DAILY RF: 0 Novolog Flexpen U-100 Insulin 100 unit/mL (3 mL) insulin pen 8 unit SUB-Q TID Qty: 15 RF: 3 furosemide 20 mg tablet 20 mg PO QAM Qty: 30 RF: 4 duloxetine [Cymbalta] 20 mg capsule,delayed release(DR/EC) 40 mg PO BID RF: 0 buspirone 5 mg tablet 5 mg PO BID RF: 0 senna 8.6 mg Capsule 8.6 mg PO BID RF: 0 Levemir FlexTouch U-100 Insuln 100 unit/mL (3 mL) insulin pen 60 unit SUB-Q HS RF: 0 atorvastatin 20 mg tablet 20 mg PO DAILY Qty: 30 RF: 5 metoprolol tartrate 50 mg tablet 50 mg PO Q12H Qty: 180 RF: 2 memantine [Namenda] 10 mg tablet 10 mg PO BID Qty: 60 RF: 5 pramipexole [Mirapex] 1 mg tablet 1 mg PO BID Qty: 60 RF: 5 omega-3 acid ethyl esters [Lovaza] 1 gram capsule 1 cap PO TID Qty: 90 RF: 5 gabapentin 300 mg capsule 300 mg PO TID Qty: 90 RF: 2 Discontinued Toviaz 4 mg tablet extended release 24 hr 4 mg PO DAILY Qty: 90 RF: 1 Date of admission: 06/20/19 19:00 Primary Care Provider: Keenan Jaime Admitting Provider: Huber Larsen Dis
[2019-06-22] MEDS: OMEGA 3 POLYUNSAT FATTY ACIDS 1 GM CAP PO (11:13)
[2019-06-22 12:15] LABS: Glucose Point of Care 257 (65-105)
== END 2019-06-22 14:37 | disposition home or self-care (01) | DRG 683 ==
LOC: ANHED 19:52 → ANH3MED 06-21 06:34
PROVIDERS: Internal Medicine; Admitting Provider Internal Medicine; Emergency Provider Emergency Medicine; PCP Family Medicine; Visit Provider Internal Medicine
DX: N17.9 Acute kidney failure, unspecified (principal); N39.0 Urinary tract infection, site not specified; I13.0 Hypertensive heart and chronic kidney disease with heart failure and stage 1 through stage 4 chronic kidney disease, or unspecified chronic kidney disease; I50.32 Chronic diastolic (congestive) heart failure; Z68.41 Body mass index [BMI] 40.0-44.9, adult; N18.3 Chronic kidney disease, stage 3 (moderate); E11.22 Type 2 diabetes mellitus with diabetic chronic kidney disease; E11.65 Type 2 diabetes mellitus with hyperglycemia; G47.33 Obstructive sleep apnea (adult) (pediatric); R33.8 Other retention of urine; E55.9 Vitamin D deficiency, unspecified; E11.21 Type 2 diabetes mellitus with diabetic nephropathy; E11.51 Type 2 diabetes mellitus with diabetic peripheral angiopathy without gangrene; E78.5 Hyperlipidemia, unspecified; K21.9 Gastro-esophageal reflux disease without esophagitis; I87.2 Venous insufficiency (chronic) (peripheral); D64.9 Anemia, unspecified; N39.3 Stress incontinence (female) (male); M85.80 Other specified disorders of bone density and structure, unspecified site; G25.81 Restless legs syndrome; F03.90 Unspecified dementia, unspecified severity, without behavioral disturbance, psychotic disturbance, mood disturbance, and anxiety; Z79.82 Long term (current) use of aspirin; Z79.4 Long term (current) use of insulin; Z91.19 Patient's noncompliance with other medical treatment and regimen; Z90.49 Acquired absence of other specified parts of digestive tract; Z86.718 Personal history of other venous thrombosis and embolism; Z98.42 Cataract extraction status, left eye; Z98.41 Cataract extraction status, right eye; E66.9 Obesity, unspecified
CPT/HCPCS: 36415; 74018; 80048; 80053; 81001; 83036; 85025; 85027; 87086; 87088; 96365; 97161; 97165; 99291; A9270; J0696; J1815; J7030

== ENCOUNTER 2019-08-02 00:26 | Outpatient (CLI) | payer MEDICARE, SELFPAY ==
[2019-08-02 20:58] LABS: SARS-CoV-2 RNA PCR Negative
== END 2019-08-02 00:27 | disposition home or self-care (01) ==
LOC: ANHCOVIDDT 00:26
PROVIDERS: PCP Family Medicine; Visit Provider Obstetrics & Gynecology Gynecology
DX: Z01.812 Encounter for preprocedural laboratory examination (principal); Z11.59 Encounter for screening for other viral diseases
CPT/HCPCS: 87635; C9803; U0003

== ENCOUNTER 2019-08-05 01:39 | Day surgery (SDC) | payer MEDICARE, SELFPAY ==
[2019-07-31 13:32] VITALS: BMI 40.4
--- NOTE | 2019-08-05 07:13 | PM.HPGS ---
History of Present Illness History of Present Illness Consent: Risks, benefits, and alternatives have been discussed and questions answered. Patient agrees to proceed with procedure. Chief complaint: post menopausal bleeding Narrative: Lissette Austin is a 74 year old female with postmenopausal bleeding in Dec., Jan., & Mar referred from PCP Dr. Jaime. Discussed with patient and recommended to proceed with hysteroscopy and D&C. Risks of infection, bleeding, and perforation were reviewed. Possible pathology discussed. [facility] Past Medical History Medical History (Updated 08/05/19 @ 07:18 by Liz Acosta MD) Anemia ASD (atrial septal defect) [id number] shunt noted on echocardiogram from October 2017 Back pain Bladder prolapse CHF (congestive heart failure) Diastolic congestive heart failure with echocardiogram noting grade 1 diastolic dysfunction, EF of 71%, mild LVH and mild left atrial enlargement October 2017 Chronic venous stasis dermatitis Bilateral CKD (chronic kidney disease), stage III Dementia Diverticulosis DVT (deep venous thrombosis) Right lower extremity November 2016 Female stress incontinence Frequent UTI Gastro-esophageal reflux disease without esophagitis Hematuria HLD (hyperlipidemia) Hypertension Murmur NIURKA (obstructive sleep apnea) Noncompliant with CPAP therapy however had sleep study around 2005 recommended CPAP of 18 Osteopenia PVD (peripheral vascular disease) Rectal polyp RLS (restless legs syndrome) Seasonal allergic rhinitis Severe episode of recurrent major depressive disorder, without psychotic features Sleep apnea Type 2 diabetes mellitus On long-term insulin therapy Type 2 diabetes mellitus with diabetic nephropathy Vaginal irritation Vitamin D deficiency Surgical History Surgical History (Updated 06/21/19 @ 08:36 by Winsome Luna DO) Fractures elbow status post ORIF H/O colonoscopy with polypectomy March [address] Andre Rectal polyp with appearance of villous adenoma on pathology internal hemorrhoids and diverticulosis without perforation History of lumbar surgery Hx of appendectomy Hx of cholecystectomy Status post cataract extraction of both eyes with insertion of intraocular lens Family History Family History (Updated 06/21/19 @ 08:41 by Winsome Luna DO) Mother Diabetes mellitus Hypertension CHF (congestive heart failure) Coronary artery disease Father Diabetes mellitus Chronic kidney disease Grandparent Cerebrovascular accident Hearing loss Sibling Diabetes mellitus Dementia Son , in his 50s Pancreatic cancer Daughter Morbid obesity Other Family history of lupus erythematosus Cousin Other Family history of malignant neoplasm of breast Family history of malignant neoplasm of ovary Family history of obesity Social History Social History (Updated 06/21/19 @ 08:45 by Winsome Luna DO) Social History: Primary care physician: Dr. Keenan Jaime Code status: Full code per EMR Smoking status: Never smoker Second hand tobacco smoke exposure: No Alcohol intake: never Substance use: never Substance use type: does not use Additional living arrangements comments: She lives in [place] with her of 59 years. She had 2 children her son in his 50s of pancreatic cancer. Her daughter is still living and suffers with morbid obesity. Gender identity (if verbalized by the patient): Female Spiritual care concerns: No Meds Home Medications and Allergies Home Medications Medication Instructions Recorded Confirmed Type aripiprazole 5 mg tablet 5 mg PO DAILY 12/18/18 07/31/19 History aspirin 81 mg tablet,delayed 81 mg PO DAILY 12/18/18 07/31/19 History release omeprazole 20 mg capsule,delayed 20 mg PO DAILY 12/18/18 07/31/19 History release insulin aspart U-100 100 unit/mL 8 unit SUB-Q TID #15 ml 12/28/18 07/31/19 Rx (3 mL) subcutaneo
[2019-08-05 07:58] VITALS: BP 164/65; PULSE 61; RESP 20; TEMP 36.3; O2SAT 98
[2019-08-05] MEDS: LACTATED RINGERS 1,000 ML 30 ML IV CONT (08:40)
[2019-08-05 08:45] LABS: Glucose Point of Care 201 (65-105)
--- NOTE | 2019-08-05 08:47 | SUR.PREOP ---
0820-PT INFORMED OF ~45 MINUTE ROOM DELAY R/T ROOM ENVIRONMENT CONTROL.
--- NOTE | 2019-08-05 09:03 | WPDANESEPPF ---
Anes - Initial Pre Proc Eval Procedure: Operation Date: 08/05/19 10:30 Proposed Procedures p Hysteroscopy, Dilation and Curettage - Liz Acosta MD Date/Time: 08/05/19 09:03 Surgeon: Liz Acosta MD Pre Op Diagnosis: post menopausal bleeding Patient Data Age: 74 Gender: F Height: 5 ft 6 in Weight: 109.4 kg Last Vital Signs Temp 97.3 F L 08/05/19 07:58 Pulse 61 08/05/19 07:58 Resp 20 08/05/19 07:58 BP 164/65 H 08/05/19 07:58 Pulse Ox 98 08/05/19 07:58 Allergies Allergy/AdvReac Type Severity Reaction Status Date / Time adhesive tape Allergy Mild RASH Verified 07/31/19 13:40 lovastatin Allergy Mild RASH Verified 07/31/19 13:40 latex Allergy Unknown Rash Verified 07/31/19 13:40 Penicillins Allergy Unknown RASH Verified 07/31/19 13:40 Home Medications Medication Instructions Recorded Confirmed Type aripiprazole 5 mg tablet 5 mg PO DAILY 12/18/18 07/31/19 History aspirin 81 mg tablet,delayed 81 mg PO DAILY 12/18/18 07/31/19 History release omeprazole 20 mg capsule,delayed 20 mg PO DAILY 12/18/18 07/31/19 History release insulin aspart U-100 100 unit/mL 8 unit SUB-Q TID #15 ml 12/28/18 07/31/19 Rx (3 mL) subcutaneous pen atorvastatin 20 mg tablet 20 mg PO DAILY #30 tablet 02/13/19 07/31/19 Rx metoprolol tartrate 50 mg tablet 50 mg PO Q12H #180 tablet 02/18/19 07/31/19 Rx memantine 10 mg tablet 10 mg PO BID #60 tablet 02/21/19 07/31/19 Rx pramipexole 1 mg tablet 1 mg PO BID #60 tablet 03/18/19 07/31/19 Rx buspirone 5 mg PO BID 03/19/19 07/31/19 History senna 8.6 mg PO BID 03/19/19 07/31/19 History furosemide 20 mg tablet 20 mg PO QAM #30 tablet 04/09/19 07/31/19 Rx gabapentin 300 mg capsule 300 mg PO TID #90 cap 05/31/19 07/31/19 Rx omega-3 acid ethyl esters 1 gram 1 cap PO TID #90 cap 05/31/19 07/31/19 Rx capsule Levemir FlexTouch U-100 Insuln 60 unit SUB-Q HS 06/20/19 07/31/19 History tolnaftate 1 applic TOPICAL Q12HR #100 g 06/22/19 07/31/19 Rx duloxetine 30 mg capsule,delayed 30 mg PO DAILY #90 cap 07/03/19 07/31/19 Rx release fluconazole 150 mg tablet 150 mg PO ONCE #1 tablet 07/03/19 07/31/19 Rx Laboratory Tests 08/05/19 08:41 POC Capillary Glucose 201 mg/dl H mg/dl (65-105) Patient hx anesthesia problems: none Family hx anesthesia problems: none PMFSH Past Medical History Medical History (Updated 08/05/19 @ 07:18 by Liz Acosta MD) Anemia ASD (atrial septal defect) [id number] shunt noted on echocardiogram from October 2017 Back pain Bladder prolapse CHF (congestive heart failure) Diastolic congestive heart failure with echocardiogram noting grade 1 diastolic dysfunction, EF of 71%, mild LVH and mild left atrial enlargement October 2017 Chronic venous stasis dermatitis Bilateral CKD (chronic kidney disease), stage III Dementia Diverticulosis DVT (deep venous thrombosis) Right lower extremity November 2016 Female stress incontinence Frequent UTI Gastro-esophageal reflux disease without esophagitis Hematuria HLD (hyperlipidemia) Hypertension Murmur NIURKA (obstructive sleep apnea) Noncompliant with CPAP therapy however had sleep study around 2005 recommended CPAP of 18 Osteopenia PVD (peripheral vascular disease) Rectal polyp RLS (restless legs syndrome) Seasonal allergic rhinitis Severe episode of recurrent major depressive disorder, without psychotic features Sleep apnea Type 2 diabetes mellitus On long-term insulin therapy Type 2 diabetes mellitus with diabetic nephropathy Vaginal irritation Vitamin D deficiency Surgical History Surgical History (Updated 06/21/19 @ 08:36 by Winsome Luna DO) Fractures elbow status post ORIF H/O colonoscopy with polypectomy March [address] Andre Rectal polyp with appearance of villous adenoma on pathology internal hemorrhoids and diverticulosis without perforation History of lumbar surgery Hx of appendectomy Hx of cholecystectomy Status post
--- NOTE | 2019-08-05 09:50 | SUR.OPER ---
EBL:5cc
[2019-08-05 10:01] VITALS: BP 125/51; PULSE 58; RESP 18; O2SAT 94
--- NOTE | 2019-08-05 10:04 | PM.OP ---
Procedure Note - Brief Procedure Note - Brief Date of procedure: 08/05/19 Pre-op diagnosis: post menopausal bleeding Post-op diagnosis: same Procedure performed: D&C hysteroscopy with myosure resection of polyp Anesthesia: MAC and local Surgeon: Liz Acosta MD Estimated blood loss (mL): 5 Drains: No Packing: No Pathology: yes (endometrial shavings and curettings) Complications: No immediate complications Condition: stable Disposition: PACU Findings: uterus 12 cm; moderate sized polyp posterior left and small at fundus
[2019-08-05 10:30] VITALS: BP 132/70; PULSE 55; RESP 18; O2SAT 96
[2019-08-05 11:00] VITALS: BP 141/71; BP 147/71; PULSE 50; PULSE 55; RESP 18; RESP 20; O2SAT 95
[2019-08-05 11:30] VITALS: BP 145/68; PULSE 54; RESP 20
--- NOTE | 2019-08-05 12:33 | OP_ITS ---
DATE OF PROCEDURE: 08/05/2019 PREOPERATIVE DIAGNOSIS: Postmenopausal bleeding. POSTOPERATIVE DIAGNOSIS: Postmenopausal bleeding. PROCEDURE: D and C, hysteroscopy with MyoSure resection of apparent polyps. ANESTHESIA: MAC and local. FINDINGS: The uterus sounds to 12 cm. There is a moderate size polyp on the left posterior wall near the cervix. There is a small fundal polyp. The remainder of the endometrium appears grossly atrophic. ESTIMATED BLOOD LOSS: 5 cc. PATHOLOGY: Endometrial shavings and curettings. PROCEDURE: The patient was taken to the operating room, placed under anesthesia, prepped and draped in the usual sterile fashion in the dorsal lithotomy position. Bivalved speculum was placed in the vagina. The cervix was grasped on the anterior lip with a tenaculum and injected with 1% lidocaine. The uterus was sounded to 12 cm. The cervix was serially dilated with Hegar. The diagnostic hysteroscope was placed with the above-stated findings. The mesher device was opened and placed. The polyps are removed under direct visualization all the way to the base. The instruments are removed. The medium sharp curette was used to sharply curette the endometrium until a good uterine cry was noted in all areas. Minimal material was obtained. All instruments are removed. The patient was awakened from anesthesia and taken to Recovery in stable condition. D I MT: Elma
== END 2019-08-05 11:55 | disposition home or self-care (01) ==
PROVIDERS: PCP Family Medicine; Visit Provider Obstetrics & Gynecology Gynecology
PROC: 0U5B8ZZ Destruction of Endometrium, Via Natural or Artificial Opening Endoscopic (ICD-10-PCS; CPT 58563; principal; 2019-08-05 10:30)
DX: N95.0 Postmenopausal bleeding (principal); N84.0 Polyp of corpus uteri; E11.21 Type 2 diabetes mellitus with diabetic nephropathy; I13.0 Hypertensive heart and chronic kidney disease with heart failure and stage 1 through stage 4 chronic kidney disease, or unspecified chronic kidney disease; I50.30 Unspecified diastolic (congestive) heart failure; N18.3 Chronic kidney disease, stage 3 (moderate); F03.90 Unspecified dementia, unspecified severity, without behavioral disturbance, psychotic disturbance, mood disturbance, and anxiety; K21.9 Gastro-esophageal reflux disease without esophagitis; E78.5 Hyperlipidemia, unspecified; G47.33 Obstructive sleep apnea (adult) (pediatric); E11.51 Type 2 diabetes mellitus with diabetic peripheral angiopathy without gangrene; E55.9 Vitamin D deficiency, unspecified; M85.80 Other specified disorders of bone density and structure, unspecified site; Q21.1 Atrial septal defect; D64.9 Anemia, unspecified; I87.8 Other specified disorders of veins; G25.81 Restless legs syndrome; Z79.82 Long term (current) use of aspirin; Z79.4 Long term (current) use of insulin; E66.9 Obesity, unspecified; Z68.38 Body mass index [BMI] 38.0-38.9, adult
CPT/HCPCS: 58558; 88305; J2250; J2405; J2704; J3010; J7030; J7120

== ENCOUNTER 2019-12-21 15:35 | Inpatient (IN) | payer MEDICARE, SELFPAY ==
[2019-12-21] VITALS (15 sets, daily range): BP systolic 120–157; BP diastolic 65–89; PULSE 74–124; RESP 14–24; TEMP 36.1–36.6; O2SAT 94–98; BMI 39.7
--- NOTE | ~2019-12-21 | XR_ITS ---
XR chest 1V portable DATE: 12/25/2019 15:23 INDICATION: Leukocytosis. Cough. Hyperglycemia. TECHNIQUE: Portable upright AP chest on 12/25/2019 at 1517 hours COMPARISON: 12/21/2019 AP and lateral chest FINDINGS: There is mild discoid atelectasis or scarring in the mid and lower lung zones, left greater than right. No pulmonary consolidation, pleural effusion, pulmonary vascular congestion or pneumotho rax is detected. Cardiomegaly. Aortic ectasia and tortuosity. Diffuse osteopenia. Bilateral rotator cuff atrophy. IMPRESSION: Discoid atelectasis or scarring in the mid and lower lung zones, left greater than right Cardiomegaly, aortic atherosclerosis Diffuse osteopenia Reviewed, dictated and finalized at location B. MOLD LABORATORY TECHNICIAN IMPRESSION: Discoid atelectasis or scarring in the mid and lower lung zones, le ft greater than right Cardiomegaly, aortic atherosclerosis Diffuse osteopenia
--- NOTE | ~2019-12-21 | XR_ITS ---
EXAMINATION: XR chest 2V EXAM DATE: 12/21/2019 17:52 INDICATION: Cough and high blood sugar. TECHNIQUE: Frontal and lateral projections of the chest obtained and reviewed. Comparison is made to prior examination from 07/26/2018. FINDINGS: The lungs are clear. There are no pleural effusions. The cardiomediastinal silhouette is p rominent but magnified on this AP technique. There is no pneumothorax suspected. The bones and soft tissues are unremarkable. IMPRESSION: No acute cardiopulmonary findings. Reviewed, dictated and finalized at location A. OPALEONTOLOGIST
[2019-12-21 16:50] LABS: Basophils Absolute Auto 0.1 K/mm3 (0.0-0.1); Basophils Percent Auto 0.7 % (0.2-1.2); Eosinophils Absolute Auto 0.2 K/mm3 (0-0.3); Eosinophils Percent Auto 2.1 % (0-4.4); Hematocrit 36.5 % (37.0-47.0); Hemoglobin 11.3 g/dL (12.0-15.0); Immature Granulocyte Absolute 0.06 K/mm3 (0.00-0.031); Immature Granulocyte Percent A 0.8 % (0-0.5); Lymphocytes Absolute Auto 1.98 K/mm3 (0.9-3.2); Lymphocytes Percent Auto 26.1 % (18.3-44.2); Mean Corpuscular Hemoglobin 30.1 pg (26-34); Mean Corpuscular Volume 97.3 fl (80-100); Mean Platelet Volume 11.4 fl (7.4-10.4); Monocytes Absolute Auto 0.5 K/mm3 (0.1-0.6); Monocytes Percent Auto 7.1 % (2.6-8.5); Neutrophils Absolute Auto 4.8 K/mm3 (1.3-6.7); Neutrophils Percent Auto 63.2 % (45.5-73.1); Platelet Count Result 224 k/mm3 (150-375); Red Blood Count 3.75 M/mm3 (4.2-5.4); White Blood Count 7.6 K/mm3 (4.5-10.0)
[2019-12-21 17:07] LABS: Alanine Aminotransferase 26 U/L (4-35); Albumin Level 3.9 g/dL (3.5-5.1); Alkaline Phosphatase 130 U/L (38-126); Anion Gap 13 mmol/L (8-16); Aspartate Amino Transferase 34 U/L (14-36); Blood Urea Nitrogen 68 mg/dL (7-17); Calcium 9.1 mg/dL (8.4-10.2); Carbon Dioxide 20 mmol/L (22-30); Chloride 102 mmol/L (98-107); Estimated CRCL calculation 20 ml/min; Estimated Glomerular Filt Rate 18; Glucose 620 mg/dL (65-105); Magnesium 2.1 mg/dL (1.6-2.3); Phosphorus 5.8 mg/dL (2.5-4.5); Potassium 5.6 mmol/L (3.4-5.0); Sodium 135 mmol/L (137-145)
--- NOTE | 2019-12-21 17:11 | ED.GENADULT ---
HPI - General Adult General Chief complaint: Unspecified Stated complaint: sick, not feeling well Time Seen by Provider: 12/21/19 17:10 Source: patient and EMS Mode of arrival: EMS Limitations: no limitations History of Present Illness HPI narrative: Patient is a 74-year-old female with a history of dementia, chronic kidney disease, type 2 diabetes who presents for evaluation of general malaise, elevated blood glucose readings, and abdominal skin irritation. Patient states over the past week her blood sugars have been elevated into the 500s consistently despite taking her medications as prescribed. She reports feeling diffusely weak without any focal weakness or numbness. She denies recent falls or injury. States she started develop a malodorous smell and a rash on her abdomen which has been irritating and painful. She is unsure if she has had any dysuria. She reports fever as well as dry cough. She is denying any chest pain or shortness of breath. Related Data Home Medications Medication Instructions Recorded Confirmed aripiprazole 5 mg tablet 5 mg PO DAILY 12/18/18 09/26/19 aspirin 81 mg tablet,delayed 81 mg PO DAILY 12/18/18 09/26/19 release omeprazole 20 mg capsule,delayed 20 mg PO DAILY 12/18/18 09/26/19 release buspirone 5 mg PO BID 03/19/19 09/26/19 senna 8.6 mg PO BID 03/19/19 09/26/19 Levemir FlexTouch U-100 Insuln 60 unit SUB-Q HS 06/20/19 09/26/19 furosemide 20 mg tablet 40 mg PO QAM tablet 08/13/19 09/26/19 insulin aspart U-100 100 unit/mL 11 unit SUB-Q TID ml 08/13/19 09/26/19 (3 mL) subcutaneous pen insulin degludec 100 unit/mL (3 50 unit SUB-Q DAILY ml 11/11/19 mL) subcutaneous pen Allergies Allergy/AdvReac Type Severity Reaction Status Date / Time adhesive tape AdvReac Mild RASH Verified 12/21/19 17:11 Penicillins AdvReac Unknown Unknown Verified 12/21/19 17:11 Review of Systems Review of Systems: Narrative: CONSTITUTIONAL: Reports subjective fever EYES: Denies visual changes, redness, or discharge. ENT: Reports rhinorrhea and congestion CARDIOVASCULAR: Denies chest pain, palpitations, or edema. RESPIRATORY: Reports cough and intermittent shortness of breath GASTROINTESTINAL: Denies abdominal pain, nausea, vomiting, or diarrhea. GENITOURINARY: Denies dysuria or hematuria. Reports irritation of abdominal skin and vaginal skin SKIN: Reports rash to folds of pannus MUSCULOSKELETAL: Denies back pain, joint pain, or myalgia. NEUROLOGIC: Denies headache, numbness, or weakness. [facility] Past Medical History Medical History (Updated 12/21/19 @ 18:17 by Tigist Vergara MD) Anemia ASD (atrial septal defect) Kxri-qz-mkezj shunt noted on echocardiogram from October 2017 Back pain Bladder prolapse CHF (congestive heart failure) Diastolic congestive heart failure with echocardiogram noting grade 1 diastolic dysfunction, EF of 71%, mild LVH and mild left atrial enlargement October 2017 Chronic venous stasis dermatitis Bilateral CKD (chronic kidney disease), stage III Dementia Diverticulosis DVT (deep venous thrombosis) Right lower extremity November 2016 Female stress incontinence Frequent UTI Gastro-esophageal reflux disease without esophagitis Hematuria HLD (hyperlipidemia) Hypertension Murmur NIURKA (obstructive sleep apnea) Noncompliant with CPAP therapy however had sleep study around 2005 recommended CPAP of 18 Osteopenia PVD (peripheral vascular disease) Rectal polyp RLS (restless legs syndrome) Seasonal allergic rhinitis Severe episode of recurrent major depressive disorder, without psychotic features Sleep apnea Type 2 diabetes mellitus On long-term insulin therapy Type 2 diabetes mellitus with diabetic nephropathy Vaginal irritation Vitamin D deficiency Surgical History Surgical History Fractures elbow status post ORIF H/O colonoscopy with polypectomy March [address] Andre Rectal polyp with appeara
[2019-12-21 17:12] LABS: Beta-Hydroxybutyrate/Acetoacetate 0.14 mmol/L (0.02-0.27)
--- NOTE | 2019-12-21 17:12 | ECG_ITS ---
Measurements Intervals [place] Rate: 112 P: MA: 0 QRS: 14 QRSD: 108 T: 41 QT: 333 QTc: 455 Interpretive Statements ATRIAL FLUTTER/TACHYCARDIA WITH RAPID VENTRICULAR RESPONSE BORDERLINE R WAVE PROGRESSION, ANTERIOR LEADS INFERIOR INFARCT, AGE INDETERMINATE ABNORMAL ECG Electronically Signed On 12-22-2019 8:36:38 [employer] by Peyman Ervin D.O.
[2019-12-21] MEDS: SODIUM CHLORIDE 0.9% IV 1,000 ML 999 ML IV CONT ×2 (17:16)
[2019-12-21 17:22] LABS: Glucose Point of Care > 500 (65-105)
[2019-12-21 17:29] LABS: Add Urine Microscopic? YES; Appearance Urine Turbid (Clear); Bacteria Urine Trace /hpf; Bilirubin Urine Negative (Negative); Blood Urine 3+ (Negative); Color Urine Yellow (Yellow); Glucose Urine UA 3+ mg/dL (Negative); Ketones Urine Negative (Negative); Leukocyte Esterase Ur 3+ LEU/UL (Negative); Mucus Urine Rare /lpf; Nitrate Urine Negative (Negative); Protein Urine 2+ mg/dL (Negative); RBC Urine 21-50 /hpf (0-2); Specific Grav Ur 1.014 (1.001-1.035); Squamous Epithelial Cell Urine Few /hpf (Few); Urobilinogen Urine Negative mg/dL (<2.0); WBC Clumps Urine Present /HPF; WBC Urine >75 /hpf
[2019-12-21] MEDS: INSULIN ASPART (*BKC) 100 UNITS/ML 12 UNITS SUB-Q (18:23)
[2019-12-21] MEDS: FLUCONAZOLE 400 MG/NACL 200 ML 400 MG/200 ML BAG 100 MG IVPB (18:59)
[2019-12-21 19:32] LABS: Troponin I 0.012 ng/mL (0.000-0.034)
--- NOTE | 2019-12-21 19:36 | PM.IMHP ---
H&P: HPI History of Present Illness Date/Time: 12/21/19 19:36 Chief complaint: Sepsis, Hyperglycemia, A fib with RVR, UTI Narrative: This is a pleasantly demented 71-year-old diabetic female with known past medical history of hypertension, congestive heart failure, peripheral neuropathy, among several other comorbidities who presented to the hospital with a complaint of lower abdominal rash and elevated blood sugar over the past week. The patient reports that she has been taking her medications as prescribed and is confused why her blood sugar is so elevated. About 1 week ago she decided to switch her sanitary napkin and started using a different pad and since then she has had increased foul smelling groin and lower abdominal rash. She denies any dysuria, hematuria, nausea, vomiting, fever, chills, chest pain, palpitations, abdominal pain, diarrhea, or rectal bleeding. The patient does report that she has a chronic cough which has not changed recently. Evaluation the emergency room today demonstrated a severely elevated blood sugar of 620 mg/dl, Urinalysis was grossly abnormal, and the patient appeared to be in acute on chronic renal failure with an elevated creatinine of 2.6. Her baseline creatinine appears to be anywhere from 1.1-1.6. The patient was treated emergency room today with IV fluids, IV antibiotics, and fluconazole. On further questioning the patient admits to me that she is not very careful about what she eats is accustomed to eating foods like pizza, hamburgers, and funes for breakfast. We been asked to admit the patient to the hospital for further care and she has no other complaints at this time. Review of Systems Review of Systems: All systems reviewed & are unremarkable except as noted in HPI and below [facility] Past Medical History Medical History (Updated 12/21/19 @ 19:52 by Robert Mireles MD) Anemia ASD (atrial septal defect) [id number]-rahto shunt noted on echocardiogram from October 2017 Back pain Bladder prolapse CHF (congestive heart failure) Diastolic congestive heart failure with echocardiogram noting grade 1 diastolic dysfunction, EF of 71%, mild LVH and mild left atrial enlargement October 2017 Chronic venous stasis dermatitis Bilateral CKD (chronic kidney disease), stage III Dementia Diverticulosis DVT (deep venous thrombosis) Right lower extremity November 2016 Female stress incontinence Frequent UTI Gastro-esophageal reflux disease without esophagitis Hematuria HLD (hyperlipidemia) Hypertension Murmur NIURKA (obstructive sleep apnea) Noncompliant with CPAP therapy however had sleep study around 2005 recommended CPAP of 18 Osteopenia PVD (peripheral vascular disease) Rectal polyp RLS (restless legs syndrome) Seasonal allergic rhinitis Severe episode of recurrent major depressive disorder, without psychotic features Sleep apnea Type 2 diabetes mellitus On long-term insulin therapy Type 2 diabetes mellitus with diabetic nephropathy Vaginal irritation Vitamin D deficiency Surgical History Surgical History Fractures elbow status post ORIF H/O colonoscopy with polypectomy March [address] Andre Rectal polyp with appearance of villous adenoma on pathology internal hemorrhoids and diverticulosis without perforation History of lumbar surgery Hx of appendectomy Hx of cholecystectomy Status post cataract extraction of both eyes with insertion of intraocular lens Family History Family History Mother Diabetes mellitus Hypertension CHF (congestive heart failure) Coronary artery disease Father Diabetes mellitus Chronic kidney disease Grandparent Cerebrovascular accident Hearing loss Sibling Diabetes mellitus Dementia Son , in his 50s Pancreatic cancer Daughter Morbid obesity Other Family history of lupus erythematosus Cous
[2019-12-21 20:36] LABS: Lactic Acid Reflex 1.3 mmol/L (0.7-2.1)
[2019-12-21 20:37] LABS: INR 1.1; Prothrombin Time 14.7 Seconds (11.1-14.7)
[2019-12-21 20:38] LABS: Partial Thromboplastin Time 25.6 SECONDS (22.3-36.8)
[2019-12-21 20:53] LABS: Glucose Point of Care 459 (65-105)
[2019-12-21 22:28] LABS: Glucose Point of Care 408 (65-105)
[2019-12-21] MEDS: TOLNAFTATE 1% POWDER 45 GM BTL 1 APPLIC TOPICAL (22:38)
[2019-12-21] MEDS: SODIUM CHLORIDE 0.9% IV 1,000 ML 125 ML IV CONT (22:38)
[2019-12-21 23:57] LABS: Glucose Point of Care 356 (65-105)
[2019-12-22] VITALS (18 sets, daily range): BP systolic 100–134; BP diastolic 54–93; PULSE 78–129; RESP 16–20; TEMP 35.9–36.6; O2SAT 92–99
[2019-12-22] MEDS: INSULIN HUMAN REGULAR (*BKC) 100 UNITS/ML 8 UNITS SUB-Q (01:15)
[2019-12-22 05:27] LABS: Basophils Percent Auto 0.6 % (0.2-1.2); Eosinophils Absolute Auto 0.2 K/mm3 (0-0.3); Eosinophils Percent Auto 2.9 % (0-4.4); Hematocrit 30.8 % (37.0-47.0); Hemoglobin 9.8 g/dL (12.0-15.0); Immature Granulocyte Absolute 0.03 K/mm3 (0.00-0.031); Immature Granulocyte Percent A 0.5 % (0-0.5); Lymphocytes Percent Auto 28.7 % (18.3-44.2); Mean Corpuscular HGB Conc 31.8 g/dl (32-36); Mean Corpuscular Hemoglobin 30.2 pg (26-34); Mean Corpuscular Volume 94.8 fl (80-100); Mean Platelet Volume 11.6 fl (7.4-10.4); Monocytes Absolute Auto 0.5 K/mm3 (0.1-0.6); Monocytes Percent Auto 8.4 % (2.6-8.5); Neutrophils Absolute Auto 3.7 K/mm3 (1.3-6.7); Neutrophils Percent Auto 58.9 % (45.5-73.1); Platelet Count Result 186 k/mm3 (150-375); Red Blood Count 3.25 M/mm3 (4.2-5.4); Red Cell Distribution Width 15.9 % (11.5-14.5); White Blood Count 6.3 K/mm3 (4.5-10.0)
[2019-12-22 05:51] LABS: Anion Gap 9 mmol/L (8-16); Blood Urea Nitrogen 51 mg/dL (7-17); Calcium 8.5 mg/dL (8.4-10.2); Carbon Dioxide 22 mmol/L (22-30); Chloride 111 mmol/L (98-107); Estimated CRCL calculation 31 ml/min; Estimated Glomerular Filt Rate 27; Glucose 238 mg/dL (65-105); Potassium 4.3 mmol/L (3.4-5.0); Sodium 142 mmol/L (137-145)
[2019-12-22] MEDS: SODIUM CHLORIDE 0.9% IV 1,000 ML 125 ML IV CONT ×2 (05:55→14:36)
[2019-12-22 06:21] LABS: Glucose Point of Care 189 (65-105)
--- NOTE | 2019-12-22 08:29 | PM.IMPN ---
Progress Note: A&P Assessment and Plan (1) Urinary tract infection: Qualifiers: Hematuria presence: without hematuria Urinary tract infection type: acute cystitis Qualified Code(s): N30.00 - Acute cystitis without hematuria Code(s): N39.0 - Urinary tract infection, site not specified Status: Acute Assessment and Plan: continue IV Rocephin, urine culture pending. Patient's vital stable. (2) Intertrigo: Code(s): L30.4 - Erythema intertrigo Status: Acute Assessment and Plan: Extending from groin to lower abdomen. Patient has been treated with fluconazole. topical antifungal (3) Sepsis: Qualifiers: Acute renal failure type: unspecified Sepsis acute organ dysfunction status: with acute organ dysfunction Sepsis type: sepsis due to unspecified organism Severe sepsis acute organ dysfunction type: acute renal failure Severe sepsis shock status: without septic shock Qualified Code(s): A41.9 - Sepsis, unspecified organism; R65.20 - Severe sepsis without septic shock; N17.9 - Acute kidney failure, unspecified Code(s): A41.9 - Sepsis, unspecified organism Status: Acute Assessment and Plan: With tachycardia, tachypnea, hyperglycemia. Source of sepsis appears to be urinary at this time. Continue IV antibiotics, blood cultures are pending. Urine cultures. Check lactic acid with reflex. Monitor vital signs closely in urine output. Monitor acid-base status. (4) Acute dehydration: Code(s): E86.0 - Dehydration Status: Acute Assessment and Plan: Continue IV fluid hydration. Monitor urine output and fluid status. (5) Diabetes mellitus with hyperglycemia: Qualifiers: Diabetes mellitus terminal carman insulin use: with terminal carman use Diabetes mellitus type: type 2 Qualified Code(s): E11.65 - Type 2 diabetes mellitus with hyperglycemia; Z79.4 - superintendent terminal (current) use of insulin Code(s): E11.65 - Type 2 diabetes mellitus with hyperglycemia Status: Acute Assessment and Plan: May be secondary to a combination of factors including acute sepsis, infection, and poor dietary choices. Accu-Cheks, sliding scale insulin coverage, continue long-acting insulin therapy. (6) Acute on chronic kidney failure: Qualifiers: Acute renal failure type: unspecified Chronic kidney disease stage: stage 3 (moderate) Chronic kidney disease stage 3 subtype: unspecified whether 3a or 3b Qualified Code(s): N17.9 - Acute kidney failure, unspecified; N18.30 - Chronic kidney disease, stage 3 unspecified Code(s): N17.9 - Acute kidney failure, unspecified; N18.9 - Chronic kidney disease, unspecified Status: Acute Assessment and Plan: Likely secondary to increased diuresis from hyperglycemia and acute dehydration. Continue IV fluid challenge overnight. Monitor renal function and urine output. Consider further studies in a.m. if renal function is not normalized. (7) Chronic anemia: Code(s): D64.9 - Anemia, unspecified Status: Chronic Assessment and Plan: Likely anemia of chronic disease. No signs of acute blood loss. Monitor H&H, transfuse p.r.n.. (8) Hyperkalemia: Code(s): E87.5 - Hyperkalemia Status: Acute Assessment and Plan: resolved (9) CHF (congestive heart failure): Qualifiers: Heart failure chronicity: chronic Heart failure type: diastolic Qualified Code(s): I50.32 - Chronic diastolic (congestive) heart failure Code(s): I50.9 - Heart failure, unspecified Status: Chronic Assessment and Plan: currently compensated. Monitor fluid status. Continue home CHF medications. (10) Dementia: Qualifiers: Dementia behavioral disturbance: without behavioral disturbance Dementia type: unspecified type Qualified Code(s): F03.90 - Unspecified dementia without behavioral disturbance Code(s): F03.90 - Unspecified
[2019-12-22 09:10] LABS: Glucose Point of Care 190 (65-105)
[2019-12-22] MEDS: DULoxetine HCL 30 MG CAPSULE.DR PO (10:30)
[2019-12-22] MEDS: MIRABEGRON 25 MG ER TABLET PO (10:30)
[2019-12-22] MEDS: ATORVASTATIN 20 MG TABLET PO (10:30)
[2019-12-22] MEDS: MEMANTINE 10 MG TABLET PO ×2 (10:30→17:12)
[2019-12-22] MEDS: busPIRone HCL 5 MG TABLET PO ×2 (10:30→17:12)
[2019-12-22] MEDS: TOLNAFTATE 1% POWDER 45 GM BTL 1 APPLIC TOPICAL ×2 (10:30→21:21)
[2019-12-22] MEDS: PANTOPRAZOLE SOD SESQUIHYDRATE 20 MG TAB PO (10:30)
[2019-12-22] MEDS: OMEGA 3 POLYUNSAT FATTY ACIDS 1 GM CAP PO ×3 (10:30→17:12)
[2019-12-22 12:56] LABS: Glucose Point of Care 315 (65-105)
[2019-12-22] MEDS: INSULIN ASPART (*BKC) 100 UNITS/ML SUB-Q ×2 (13:14→17:13)
[2019-12-22] MEDS: METOPROLOL TARTRATE 50 MG TAB PO ×2 (14:34→21:21)
[2019-12-22 17:16] LABS: Glucose Point of Care 274 (65-105)
[2019-12-22] MEDS: METOPROLOL TARTRATE INJ 5 MG/5 ML VIAL IV PUSH (17:47)
[2019-12-22 20:31] LABS: Glucose Point of Care 292 (65-105)
[2019-12-22] MEDS: OLANZapine 10 MG INJ VIAL IM (21:18)
[2019-12-22] MEDS: INSULIN GLARGINE (*BKC) 100 UNITS/ML 51 UNITS SUB-Q (21:19)
[2019-12-22] MEDS: SODIUM CHLORIDE 0.9% IV 1,000 ML 100 ML IV CONT (21:25)
[2019-12-23] VITALS (16 sets, daily range): BP systolic 117–168; BP diastolic 50–99; PULSE 74–134; RESP 18–24; TEMP 36.3–36.6; O2SAT 90–99
--- NOTE | 2019-12-23 | ECHO_ITS ---
Patient Info Name: Lissette Austin Age: 74 years : 1945 Gender: Female Ht: 66 in Wt: 256 lbs BSA: 2.38 m2 HR: 117 bpm BP: 117 / 50 mmHg Heart Rhythm: Atrial Flutter Technical Quality: Good Exam Date: 12/23/2019 10:54 AM Exam Location: [facility] Patient Status: Inpatient Admit Date: 12/22/2019 Staff Ordering Physician: Martha Flanagan DO [employer] Operator: Jane Norton RDCS Attending Provider: Eliezer Stearns MD Referring Physician: Panchito MENDEZ; Exam Type: CA echo doppler color flow Study Info Indications I48.1 - Persistent atrial fibrillation Complete two-dimensional, color flow and Doppler transthoracic echocardiogram is performed. Summary 1. Complete two-dimensional, color flow and Doppler transthoracic echocardiogram is performed. 2. Left ventricular chamber dimension is normal. 3. Left ventricular systolic function is normal, estimated at 55-60%. 4. Left atrial chamber dimension is moderately enlarged. 5. Appears to have a pacemaker lead in the right ventricle. 6. Mildly sclerotic aortic valve which is not functionally stenotic. Left Ventricle Left ventricular chamber dimension is normal. Left ventricular systolic function is normal, estimated at 55-60%. The left ventricular diastolic function is indeterminate. Right Ventricle Right ventricular chamber dimension is mildly enlarged. Linear artifact in right ventricle suggestive of catheter(s), pacemaker lead(s), or ICD lead(s). Left Atria Left atrial chamber dimension is moderately enlarged. Right Atria Right atrial chamber dimension is normal. Aortic Valve The aortic valve is trileaflet. There is mild aortic valve sclerosis. Pulmonic Valve The pulmonic valve is not well visualized. Mitral Valve The mitral valve has normal leaflets. Tricuspid Valve The tricuspid valve leaflets are normal. Pericardium/Pleural The pericardium appears normal. Aorta The aortic root size at the sinus of Valsalva is normal. Left Ventricular Outflow Tract Name Value Normal LVOT 2D LVOT Diameter 2.0 cm LVOT Doppler LVOT Peak Gradient 4 mmHg LVOT Mean Gradient 2 mmHg LVOT VTI 19 cm LVOT VTI/AV VTI Ratio 0.8 LVOT Stroke Volume 58 ml LVOT CO 13.1 l/min LVOT CI 5.5 l/min/m2 Pulmonic Valve Name Value Normal PV Doppler PV Peak Gradient 3 mmHg Mitral Valve Name Value Normal MV Doppler MV
[2019-12-23] MEDS: LORazepam INJ (*CRX) 2 MG/ML VIAL 0.5 MG IV PUSH (01:01)
[2019-12-23 07:19] LABS: Glucose Point of Care > 500 (65-105)
[2019-12-23] MEDS: METOPROLOL TARTRATE 50 MG TAB PO ×2 (09:15→20:44)
[2019-12-23] MEDS: MEMANTINE 10 MG TABLET PO ×2 (09:16→16:50)
[2019-12-23] MEDS: busPIRone HCL 5 MG TABLET PO ×2 (09:16→16:50)
[2019-12-23] MEDS: DULoxetine HCL 30 MG CAPSULE.DR PO (09:16)
[2019-12-23] MEDS: PANTOPRAZOLE SOD SESQUIHYDRATE 20 MG TAB PO (09:16)
[2019-12-23] MEDS: ATORVASTATIN 20 MG TABLET PO (09:16)
[2019-12-23] MEDS: OMEGA 3 POLYUNSAT FATTY ACIDS 1 GM CAP PO (09:17)
[2019-12-23] MEDS: TOLNAFTATE 1% POWDER 45 GM BTL 1 APPLIC TOPICAL ×2 (09:17→20:46)
[2019-12-23] MEDS: MIRABEGRON 25 MG ER TABLET PO (09:17)
[2019-12-23] MEDS: ENOXAPARIN 40 MG/0.4 ML SYRINGE SUB-Q (09:17)
[2019-12-23 09:27] LABS: Hemoglobin 11.5 g/dL (12.0-15.0); Mean Corpuscular HGB Conc 31.9 g/dl (32-36); Mean Corpuscular Hemoglobin 31.3 pg (26-34); Mean Corpuscular Volume 97.8 fl (80-100); Platelet Count Result 220 k/mm3 (150-375); Red Blood Count 3.68 M/mm3 (4.2-5.4); Red Cell Distribution Width 16.2 % (11.5-14.5)
[2019-12-23 09:39] LABS: Anion Gap 8 mmol/L (8-16); Blood Urea Nitrogen 33 mg/dL (7-17); Calcium 9.2 mg/dL (8.4-10.2); Carbon Dioxide 23 mmol/L (22-30); Chloride 112 mmol/L (98-107); Estimated CRCL calculation 43 ml/min; Estimated Glomerular Filt Rate 40; Glucose 244 mg/dL (65-105); Magnesium 1.7 mg/dL (1.6-2.3); Potassium 4.5 mmol/L (3.4-5.0); Sodium 143 mmol/L (137-145)
[2019-12-23 09:39] LABS: Glucose Point of Care 189 (65-105)
[2019-12-23 11:44] LABS: Free T4 Free Thyroxine Reflex 1.45 ng/dL (0.78-2.19)
[2019-12-23] MEDS: INSULIN ASPART (*BKC) 100 UNITS/ML SUB-Q ×2 (12:00→18:01)
[2019-12-23 12:40] LABS: Glucose Point of Care 272 (65-105)
[2019-12-23 13:31] LABS: Total Triiodothyronine (T3) 1.05 NG/ML (0.97-1.69)
[2019-12-23] MEDS: SODIUM CHLORIDE 0.9% IV 1,000 ML 100 ML IV CONT (13:42)
--- NOTE | 2019-12-23 16:58 | PM.IMPN ---
Progress Note: A&P Assessment and Plan (1) Urinary tract infection: Qualifiers: Hematuria presence: without hematuria Urinary tract infection type: acute cystitis Qualified Code(s): N30.00 - Acute cystitis without hematuria Code(s): N39.0 - Urinary tract infection, site not specified Status: Acute (2) Intertrigo: Code(s): L30.4 - Erythema intertrigo Status: Acute Assessment and Plan: Extending from groin to lower abdomen. Patient has been treated with fluconazole. We will also administer antifungal topically. (3) Sepsis: Qualifiers: Acute renal failure type: unspecified Sepsis acute organ dysfunction status: with acute organ dysfunction Sepsis type: sepsis due to unspecified organism Severe sepsis acute organ dysfunction type: acute renal failure Severe sepsis shock status: without septic shock Qualified Code(s): A41.9 - Sepsis, unspecified organism; R65.20 - Severe sepsis without septic shock; N17.9 - Acute kidney failure, unspecified Code(s): A41.9 - Sepsis, unspecified organism Status: Acute Assessment and Plan: (4) Acute dehydration: Code(s): E86.0 - Dehydration Status: Acute Assessment and Plan: Continue IV fluid hydration. Monitor urine output and fluid status. (5) Diabetes mellitus with hyperglycemia: Qualifiers: Diabetes mellitus longterm insulin use: with termite treater helper use Diabetes mellitus type: type 2 Qualified Code(s): E11.65 - Type 2 diabetes mellitus with hyperglycemia; Z79.4 - manager intermediate (current) use of insulin Code(s): E11.65 - Type 2 diabetes mellitus with hyperglycemia Status: Acute Assessment and Plan: May be secondary to a combination of factors including acute sepsis, infection, and poor dietary choices. Accu-Cheks, sliding scale insulin coverage, continue long-acting insulin therapy. (6) Acute on chronic kidney failure: Qualifiers: Acute renal failure type: unspecified Chronic kidney disease stage: stage 3 (moderate) Chronic kidney disease stage 3 subtype: unspecified whether 3a or 3b Qualified Code(s): N17.9 - Acute kidney failure, unspecified; N18.30 - Chronic kidney disease, stage 3 unspecified Code(s): N17.9 - Acute kidney failure, unspecified; N18.9 - Chronic kidney disease, unspecified Status: Acute (7) Chronic anemia: Code(s): D64.9 - Anemia, unspecified Status: Chronic Assessment and Plan: Likely anemia of chronic disease. No signs of acute blood loss. (8) Hyperkalemia: Code(s): E87.5 - Hyperkalemia Status: Acute (9) CHF (congestive heart failure): Qualifiers: Heart failure chronicity: chronic Heart failure type: diastolic Qualified Code(s): I50.32 - Chronic diastolic (congestive) heart failure Code(s): I50.9 - Heart failure, unspecified Status: Chronic Assessment and Plan: (10) Dementia: Qualifiers: Dementia behavioral disturbance: without behavioral disturbance Dementia type: unspecified type Qualified Code(s): F03.90 - Unspecified dementia without behavioral disturbance Code(s): F03.90 - Unspecified dementia without behavioral disturbance Status: Chronic Assessment and Plan: continue aripiprazole (11) Gastro-esophageal reflux disease without esophagitis: Code(s): K21.9 - Gastro-esophageal reflux disease without esophagitis Status: Chronic Assessment and Plan: continue omeprazole (12) Hypertension: Qualifiers: Hypertension type: unspecified Qualified Code(s): I10 - Essential (primary) hypertension Code(s): I10 - Essential (primary) hypertension Status: Chronic Assessment and Plan: monitor blood pressure. Continue metoprolol (13) RLS (restless legs syndrome): Code(s): G25.81 - Restless legs syndrome Status: Chronic Assessment and Plan:
[2019-12-23 17:34] LABS: Glucose Point of Care 220 (65-105)
[2019-12-23] MEDS: INSULIN GLARGINE (*BKC) 100 UNITS/ML 51 UNITS SUB-Q (20:44)
[2019-12-23 20:46] LABS: Glucose Point of Care 212 (65-105)
[2019-12-24] VITALS (20 sets, daily range): BP systolic 97–151; BP diastolic 43–96; PULSE 68–132; RESP 16–20; TEMP 36.4–36.7; O2SAT 93–100
[2019-12-24] MEDS: SODIUM CHLORIDE 0.9% IV 1,000 ML 100 ML IV CONT ×3 (01:32→20:09)
[2019-12-24] MEDS: dilTIAZem HCl INJ 25 MG/5 ML VIAL 10 MG IV PUSH ×2 (01:32→23:37)
[2019-12-24 06:48] LABS: Hematocrit 43.6 % (37.0-47.0); Hemoglobin 13.7 g/dL (12.0-15.0); Mean Corpuscular HGB Conc 31.4 g/dl (32-36); Mean Corpuscular Hemoglobin 30.1 pg (26-34); Mean Corpuscular Volume 95.8 fl (80-100); Platelet Count Result 227 k/mm3 (150-375); Red Blood Count 4.55 M/mm3 (4.2-5.4); Red Cell Distribution Width 16.3 % (11.5-14.5); White Blood Count 13.9 K/mm3 (4.5-10.0)
[2019-12-24 07:03] LABS: Anion Gap 13 mmol/L (8-16); Blood Urea Nitrogen 19 mg/dL (7-17); Calcium 9.8 mg/dL (8.4-10.2); Carbon Dioxide 25 mmol/L (22-30); Chloride 106 mmol/L (98-107); Estimated CRCL calculation 50 ml/min; Estimated Glomerular Filt Rate 48; Glucose 218 mg/dL (65-105); Magnesium 1.6 mg/dL (1.6-2.3); Potassium 4.7 mmol/L (3.4-5.0); Sodium 144 mmol/L (137-145)
[2019-12-24 08:34] LABS: Glucose Point of Care 198 (65-105)
[2019-12-24] MEDS: MIRABEGRON 25 MG ER TABLET PO (09:20)
[2019-12-24] MEDS: ENOXAPARIN 40 MG/0.4 ML SYRINGE SUB-Q (09:20)
[2019-12-24] MEDS: busPIRone HCL 5 MG TABLET PO ×2 (09:20→18:30)
[2019-12-24] MEDS: PANTOPRAZOLE SOD SESQUIHYDRATE 20 MG TAB PO (09:20)
[2019-12-24] MEDS: MEMANTINE 10 MG TABLET PO ×2 (09:21→18:30)
[2019-12-24] MEDS: ATORVASTATIN 20 MG TABLET PO (09:21)
[2019-12-24] MEDS: DULoxetine HCL 30 MG CAPSULE.DR PO (09:21)
[2019-12-24] MEDS: TOLNAFTATE 1% POWDER 45 GM BTL 1 APPLIC TOPICAL ×2 (09:27→20:09)
--- NOTE | 2019-12-24 09:28 | PCOTNOTE ---
Attempted OT evaluation, per RN, after PT patient is emotional and confused and to hold therapy at this point. Will follow.
[2019-12-24] MEDS: INSULIN ASPART (*BKC) 100 UNITS/ML SUB-Q ×2 (13:25→18:31)
[2019-12-24 16:52] LABS: Glucose Point of Care 213 (65-105)
[2019-12-24 16:52] LABS: Glucose Point of Care 252 (65-105)
--- NOTE | 2019-12-24 18:25 | PM.IMPN ---
Progress Note: A&P Assessment and Plan (1) CHF (congestive heart failure): Qualifiers: Heart failure type: diastolic Heart failure chronicity: chronic Qualified Code(s): I50.32 - Chronic diastolic (congestive) heart failure Code(s): I50.9 - Heart failure, unspecified Status: Chronic Assessment and Plan: 2DECHO shows EF=50-60% Diastolic heart failure grade indeterminate. (2) Sepsis: Qualifiers: Sepsis type: sepsis due to unspecified organism Sepsis acute organ dysfunction status: with acute organ dysfunction Severe sepsis acute organ dysfunction type: acute renal failure Acute renal failure type: unspecified Severe sepsis shock status: without septic shock Qualified Code(s): A41.9 - Sepsis, unspecified organism; R65.20 - Severe sepsis without septic shock; N17.9 - Acute kidney failure, unspecified Code(s): A41.9 - Sepsis, unspecified organism Status: Acute Assessment and Plan: Continue Rocephin Secondary to UTI Supportive care Await Ua cx. I&S Deescalate antibiotics as needed Daily labs Daily I/O's (3) Urinary tract infection: Qualifiers: Hematuria presence: without hematuria Urinary tract infection type: acute cystitis Qualified Code(s): N30.00 - Acute cystitis without hematuria Code(s): N39.0 - Urinary tract infection, site not specified Status: Acute Assessment and Plan: On Rocephin. (4) Atrial fibrillation with rapid ventricular response: Code(s): I48.91 - Unspecified atrial fibrillation Status: Acute Assessment and Plan: Currently on Cardizem drip Continue to monitor Continue Telemetry. Subjective Date/time seen: 12/24/19 18:25 Patient is upset crying in bed. Review of Systems Review of Systems: Narrative: Unable to obtain as patient has altered mental status. Mood swings, crying, throwing temper tantrums. Exam Narrative: Exam Narrative: Patient found to have UTI. Had A. fib with RVR upon presentation on Cardizem drip. Const: General: comfortable, well developed, alert, awake and other (Was crying after her PT session not wanting to talk.) Nutritional Appearance: average body habitus Orientation/consciousness: Other orientation findings (Having a crying spell.) HENMT: Head: normal to inspection and normocephalic Ears: hearing grossly normal bilaterally General nose exam: Normal external nose present Face and sinus: normal facial exam Eyes: General: appearance normal, both eyes and all related structures Eyelids: eyelids normal Conjunctivae: conjunctivae normal Sclera: sclerae normal Cornea: corneas normal Pupils: Equal, round and reactive pupils present EOM: EOMs intact bilaterally Neck: Neck: full ROM, no lymphadenopathy and no JVD Resp: Effort & Inspection: able to speak in complete sentences Auscultation: clear to auscultation bilaterally Cardio: Rhythm: other (Irregularly irregular rhythm) GI: Inspection: normal to inspection GI Palp: Yes Soft to palpation and Yes No hepatosplenomegaly present Skin: General skin exam: normal color Lesions: no lesions Rashes: other (Intertriginosis) Trauma: no lacerations or abrasions Wounds: no wounds Neuro: General: patient oriented x3 and CN's II-XI intact bilaterally Cranial nerves: Yes CN's II-XII intact bilaterally and Yes Equal, round and reactive pupils present Cognition (Neuro): normal cognition Speech: normal speech Gait exam (Neuro): Normal gait present Motor exam (neuro): 5/5 motor strength present throughout Sensory Exam: normal sensation Extrem: General: normal to inspection and no pedal edema Psych: Appearance: grossly normal Mental Status: mental status grossly normal Speech and movement: Normal speech and movement present Affect: Labile affect present Attitude: Belligerent attititude/behavior present Objective Data Vital Signs Vital Signs: Vital Signs - 24 hr 12/23/19 19:54 12/23/19 20:00 12/23/19 20:44
[2019-12-24] MEDS: INSULIN GLARGINE (*BKC) 100 UNITS/ML 51 UNITS SUB-Q (20:09)
[2019-12-24 20:12] LABS: Glucose Point of Care 242 (65-105)
[2019-12-25] VITALS (15 sets, daily range): BP systolic 137–150; BP diastolic 54–95; PULSE 66–113; RESP 18–20; TEMP 36.1–36.6; O2SAT 92–97
[2019-12-25] MEDS: SODIUM CHLORIDE 0.9% IV 1,000 ML 100 ML IV CONT ×2 (06:13→17:17)
[2019-12-25 08:11] LABS: Glucose Point of Care 203 (65-105)
--- NOTE | 2019-12-25 08:22 | PCPTNOTE ---
At this time, patient has been discharged from PT services per physician order. Mercedes Suárez, PT, DPT
--- NOTE | 2019-12-25 08:38 | PM.IMPN ---
Progress Note: A&P Assessment and Plan (1) Acute kidney injury superimposed on CKD: Code(s): N17.9 - Acute kidney failure, unspecified; N18.9 - Chronic kidney disease, unspecified Status: Acute Assessment and Plan: Bun/Cr at patient's baseline Continue to monitor Avoid nephrotoxins (2) Chronic diastolic CHF (congestive heart failure): Code(s): I50.32 - Chronic diastolic (congestive) heart failure Status: Acute Assessment and Plan: Does not appeared to be acutely exacerbated Daily I/O's Continue to monitor (3) New onset atrial flutter: Code(s): I48.92 - Unspecified atrial flutter Status: Acute Assessment and Plan: Appreciate Cardiology note Follow recs. (4) RLS (restless legs syndrome): Code(s): G25.81 - Restless legs syndrome Status: Chronic Assessment and Plan: Continue home meds. (5) Dementia: Qualifiers: Dementia type: unspecified type Dementia behavioral disturbance: without behavioral disturbance Qualified Code(s): F03.90 - Unspecified dementia without behavioral disturbance Code(s): F03.90 - Unspecified dementia without behavioral disturbance Status: Chronic Assessment and Plan: Continue home meds On Duloxetine (6) Gastro-esophageal reflux disease without esophagitis: Code(s): K21.9 - Gastro-esophageal reflux disease without esophagitis Status: Chronic Assessment and Plan: Stable. (7) Urinary tract infection: Qualifiers: Hematuria presence: without hematuria Urinary tract infection type: acute cystitis Qualified Code(s): N30.00 - Acute cystitis without hematuria Code(s): N39.0 - Urinary tract infection, site not specified Status: Acute Assessment and Plan: Ua cx with no growth however will repeat Ua as initial with significant WBC Some mild leukocytosis as well. Afebrile Subjective Date/time seen: 12/25/19 08:38 I feel fine. Review of Systems Review of Systems: Narrative: Unable to obtain as patient is delirious at times although improved. Exam Narrative: Exam Narrative: Afebrile, no new issues overnight. Const: General: cooperative, healthy appearing, comfortable, no acute distress, alert, awake and other (Mood swings at times.) Nutritional Appearance: average body habitus and overweight HENMT: Head: normal to inspection and normocephalic Ears: hearing grossly normal bilaterally General nose exam: Normal external nose present Face and sinus: normal facial exam Mouth: Yes Normal oral and palatal mucosa present Eyes: General: appearance normal, both eyes and all related structures Pupils: Equal, round and reactive pupils present EOM: EOMs intact bilaterally Neck: Neck: normal visual inspection, full ROM, no lymphadenopathy and no JVD Resp: Effort & Inspection: normal respiratory effort Auscultation: clear to auscultation bilaterally Cardio: Jugular venous distension: no JVD Rhythm: other (Irregularly irregular rhythm.) GI: Inspection: normal to inspection GI Palp: Yes Soft to palpation and Yes No hepatosplenomegaly present Skin: General skin exam: normal color Lesions: no lesions Rashes: no rashes Trauma: no lacerations or abrasions Wounds: no wounds Neuro: General: oriented to person, oriented to place, oriented to time and CN's II-XI intact bilaterally Cranial nerves: Yes CN's II-XII intact bilaterally and Yes Equal, round and reactive pupils present Cognition (Neuro): normal cognition Speech: normal speech Motor exam (neuro): 5/5 motor strength present throughout Sensory Exam: normal sensation Extrem: General: normal to inspection, full ROM and no pedal edema Objective Data Vital Signs Vital Signs: Vital Signs - 24 hr 12/24/19 10:00 12/24/19 12:00 12/24/19 14:00 Temperature 98.0 F Pulse Rate 114 H 114 H 97 Respiratory Rate 16 Blood Pressure 135/68 Pulse Oximetry 100 12/24/19 15:01 12/24/19 15:4
[2019-12-25 09:09] LABS: Basophils Percent Auto 0.2 % (0.2-1.2); Eosinophils Percent Auto 0.2 % (0-4.4); Hematocrit 33.8 % (37.0-47.0); Hemoglobin 10.7 g/dL (12.0-15.0); Immature Granulocyte Absolute 0.08 K/mm3 (0.00-0.031); Immature Granulocyte Percent A 0.6 % (0-0.5); Lymphocytes Absolute Auto 1.94 K/mm3 (0.9-3.2); Lymphocytes Percent Auto 14.2 % (18.3-44.2); Mean Corpuscular HGB Conc 31.7 g/dl (32-36); Mean Corpuscular Hemoglobin 31.1 pg (26-34); Mean Corpuscular Volume 98.3 fl (80-100); Mean Platelet Volume 10.9 fl (7.4-10.4); Monocytes Absolute Auto 1.3 K/mm3 (0.1-0.6); Monocytes Percent Auto 9.8 % (2.6-8.5); Neutrophils Absolute Auto 10.2 K/mm3 (1.3-6.7); Platelet Count Result 186 k/mm3 (150-375); Red Blood Count 3.44 M/mm3 (4.2-5.4); Red Cell Distribution Width 16.7 % (11.5-14.5); White Blood Count 13.6 K/mm3 (4.5-10.0)
[2019-12-25] MEDS: MEMANTINE 10 MG TABLET PO ×2 (09:30→17:18)
[2019-12-25] MEDS: DULoxetine HCL 30 MG CAPSULE.DR PO (09:31)
[2019-12-25] MEDS: busPIRone HCL 5 MG TABLET PO ×2 (09:31→17:18)
[2019-12-25] MEDS: MIRABEGRON 25 MG ER TABLET PO (09:31)
[2019-12-25] MEDS: OMEGA 3 POLYUNSAT FATTY ACIDS 1 GM CAP PO ×3 (09:31→17:18)
[2019-12-25] MEDS: ATORVASTATIN 20 MG TABLET PO (09:31)
[2019-12-25] MEDS: PANTOPRAZOLE SOD SESQUIHYDRATE 20 MG TAB PO (09:31)
[2019-12-25] MEDS: ENOXAPARIN 40 MG/0.4 ML SYRINGE SUB-Q (09:31)
[2019-12-25] MEDS: TOLNAFTATE 1% POWDER 45 GM BTL 1 APPLIC TOPICAL ×2 (09:32→20:06)
[2019-12-25 09:36] LABS: Anion Gap 8 mmol/L (8-16); Blood Urea Nitrogen 27 mg/dL (7-17); Calcium 8.4 mg/dL (8.4-10.2); Carbon Dioxide 21 mmol/L (22-30); Chloride 110 mmol/L (98-107); Estimated CRCL calculation 31 ml/min; Estimated Glomerular Filt Rate 29; Glucose 223 mg/dL (65-105); Potassium 4.6 mmol/L (3.4-5.0); Sodium 139 mmol/L (137-145)
--- NOTE | 2019-12-25 10:14 | PM.CNCAR ---
Assessment and Plan Assessment and plan (1) New onset atrial flutter: Code(s): I48.92 - Unspecified atrial flutter Status: Acute Assessment and Plan: New onset atrial flutter in the setting of sepsis in a patient with multiple risk factors to develop atrial arrhythmias. Heart rate has improved on Cardizem 15 milligrams/hours - metoprolol tartrate 50 mg b.i.d. held since 12/23/2019. Will try increasing metoprolol to 75 mg b.i.d. and discontinuing the Cardizem drip. PRN IV metoprolol during this transition. CHADS2-VASC score = 6, at at a higher risk for cardioembolic events. Patient has had some rectal bleeding recently, presumably from her hemorrhoids, so I think is lee not to anticoagulate. Will treat her constipation (Miralax) and re-evaluate for suitability for anticoagulation in the office at a later date. No falls, or h/o CVA. (2) Chronic diastolic CHF (congestive heart failure): Code(s): I50.32 - Chronic diastolic (congestive) heart failure Status: Acute Assessment and Plan: Chronic diastolic heart failure appears controlled; she does not appear volume overloaded at this point despite rehydration. (3) Acute kidney injury superimposed on CKD: Code(s): N17.9 - Acute kidney failure, unspecified; N18.9 - Chronic kidney disease, unspecified Status: Acute Assessment and Plan: BUN improved w/ hydration (4) Abdominal wall cellulitis: Code(s): L03.311 - Cellulitis of abdominal wall Status: Acute Assessment and Plan: Cellulitis, poss UTI, sepsis, improving. History of Present Illness History of Present Illness Consult date/time: 12/25/19 10:14 Requesting physician: Tara Pearce MD Consult reason: chest pain and Other (New onset atrial flutter) Reason For Visit: Sepsis, Hyperglycemia, A fib with RVR, UTI Narrative: Date of service: 12/25/2019 Thuy Austin is a 74 y.o. WF whom we were asked to see at the request of the hospitalists for our advice and opinion regarding her new onset of atrial flutter RVR, in consultation. Dr. Barlow sees her in the office for her chronic diastolic heart failure, and hypertension. She also has a history of diabetes, CKD, NIURKA noncompliant with CPAP, ASD/PFO, hyperlipidemia, chronic venous stasis with dermatitis, history of DVT, and dementia. Ms. Austin was admitted 12/21/2019 w/ weakness, abdominal wall cellulitis, sepsis, uncontrolled DM, JUSTIN and dehydration. She was found to be in new onset a flutter RVR. She was hydrated. Metoprolol was continued. She was started on a Cardizem drip on 12/24/2019 when her heart rate went up to 120's. I was called in the coatings inspector hours for ongoing RVR and increased the rate to 15 mg/hr. Heart rate this morning is now in the 80s. Endoscopy for bright red blood in her stool 03/[address] Andre showed rectal polyps (removed), internal hemorrhoids and diverticulosis. Has had some recurrent bleeding when she strains from her constipation with blood in the toilet bowel in the last few weeks. Review of Systems Review of Systems: Narrative: Patient has dementia and is a fuzzy historian Constitutional: Constitutional: Reports fatigue and Reports weakness Eyes: Eyes: Reports no additional eye complaints ENT: Denies epistaxis Cardiovascular: Cardiovascular: Denies chest pain, Reports pedal edema, Reports leg edema and Denies palpitations Respiratory: Respiratory: Reports cough (Chronic mildly productive cough), Denies dyspnea and Denies dyspnea on exertion Gastrointestinal: Gastrointestinal: Denies abdominal pain, Reports hematochezia (blood in toilet bowel when she strains.) and Reports constipation Genitourinary: Genitourinary: Denies hematuria Musculoskeletal: Musculoskeletal: Reports arthralgias (Legs and feet hurt) Integumentary/Breasts: Skin/Breast:
--- NOTE | 2019-12-25 11:15 | PCOTNOTE ---
Attempted OT evaluation, per RN patient not available for evaluation until afternoon, will attempt at later time.
[2019-12-25] MEDS: METOPROLOL TARTRATE 50 MG TAB PO (12:07)
[2019-12-25 12:29] LABS: Glucose Point of Care 191 (65-105)
[2019-12-25 14:04] LABS: SARS-CoV-2 RNA PCR Negative
[2019-12-25 16:26] LABS: Vancomycin Trough 8.7 ug/mL (10.0-20.0)
[2019-12-25 17:22] LABS: Glucose Point of Care 279 (65-105)
[2019-12-25] MEDS: INSULIN ASPART (*BKC) 100 UNITS/ML SUB-Q (17:23)
[2019-12-25 19:57] LABS: Glucose Point of Care 294 (65-105)
[2019-12-25] MEDS: INSULIN GLARGINE (*BKC) 100 UNITS/ML 51 UNITS SUB-Q (20:05)
[2019-12-26] VITALS (21 sets, daily range): BP systolic 125–145; BP diastolic 54–80; PULSE 78–125; RESP 16–20; TEMP 36.4–37.2; O2SAT 90–99
[2019-12-26] MEDS: SODIUM CHLORIDE 0.9% IV 1,000 ML 100 ML IV CONT (02:11)
[2019-12-26] MEDS: METOPROLOL TARTRATE INJ 5 MG/5 ML VIAL IV PUSH (02:11)
[2019-12-26 05:10] LABS: Estimated CRCL calculation 34 ml/min; Estimated Glomerular Filt Rate 34
[2019-12-26 08:35] LABS: Glucose Point of Care 210 (65-105)
[2019-12-26] MEDS: INSULIN ASPART (*BKC) 100 UNITS/ML SUB-Q ×3 (08:40→17:21)
[2019-12-26] MEDS: DULoxetine HCL 30 MG CAPSULE.DR PO (08:46)
[2019-12-26] MEDS: PANTOPRAZOLE SOD SESQUIHYDRATE 20 MG TAB PO (08:46)
[2019-12-26] MEDS: OMEGA 3 POLYUNSAT FATTY ACIDS 1 GM CAP PO ×3 (08:46→17:16)
[2019-12-26] MEDS: MEMANTINE 10 MG TABLET PO ×2 (08:47→17:15)
[2019-12-26] MEDS: ENOXAPARIN 40 MG/0.4 ML SYRINGE SUB-Q (08:47)
[2019-12-26] MEDS: ATORVASTATIN 20 MG TABLET PO (08:47)
[2019-12-26] MEDS: MIRABEGRON 25 MG ER TABLET PO (08:47)
[2019-12-26] MEDS: busPIRone HCL 5 MG TABLET PO ×2 (08:47→17:15)
[2019-12-26] MEDS: TOLNAFTATE 1% POWDER 45 GM BTL 1 APPLIC TOPICAL ×2 (08:52→20:02)
[2019-12-26] MEDS: polyethylene glycoL 3350 17 GM POWD.PACK PO (08:52)
--- NOTE | 2019-12-26 10:12 | PM.PNCARD ---
Progress Note: A&P Assessment and Plan (1) New onset atrial flutter: Code(s): I48.92 - Unspecified atrial flutter Status: Acute Assessment and Plan: New onset atrial flutter in the setting of sepsis in with multiple risk factors to develop atrial arrhythmias. Heart rate improved on Cardizem 15 milligrams/hours. Drip was discontinued 12/25/2019. Metoprolol p.o. was given at noon. For some reason the 75 mg every 12 hours and order was put on hold. According to pharmacy the hold is attached to at 11:01 a.m. on 12/25/2019. Unsure how this could have happened. Did receive a dose of IV Metoprolol through the night. Will give metoprolol tartrate 75 mg now and continue Q 12 hours starting at 9:00 p.m. this evening. PRN IV metoprolol during the transition. CHADS2-VASC score = 6, at at a higher risk for cardioembolic events. Patient has had some rectal bleeding recently, presumably from her hemorrhoids, so I think is lee not to anticoagulate. Will treat her constipation (Miralax) and re-evaluate for suitability for anticoagulation in the office at a later date. No falls, or h/o CVA. (2) Chronic diastolic CHF (congestive heart failure): Code(s): I50.32 - Chronic diastolic (congestive) heart failure Status: Acute Assessment and Plan: Chronic diastolic heart failure appears controlled; she does not appear volume overloaded at this point despite rehydration. (3) Acute kidney injury superimposed on CKD: Code(s): N17.9 - Acute kidney failure, unspecified; N18.9 - Chronic kidney disease, unspecified Status: Acute Assessment and Plan: BUN improved w/ hydration (4) Abdominal wall cellulitis: Code(s): L03.311 - Cellulitis of abdominal wall Status: Acute Assessment and Plan: Cellulitis, poss UTI, sepsis, improving. Additional Plan Plan discussed with 1030 12/26/2019 Subjective Date/time seen: 12/26/19 10:12 Interval history: Follow-up for: Atrial flutter in the setting of sepsis, chronic diastolic heart failure, acute kidney injury and superimposed on CKD. Date of service: 12/26/2019 Subjective: Needs to have bowel movement. Denied chest discomfort. Short of breath with exertional activity. Being assisted to turn in bed. Has not been up. Review of Systems Constitutional: Constitutional: Reports fatigue and Reports weakness Eyes: Eyes: Denies blind spots and Denies blurry vision ENT: Denies epistaxis Cardiovascular: Cardiovascular: Denies chest pain, Denies pedal edema, Denies leg edema, Denies lightheadedness, Denies palpitations, Denies dyspnea and Denies dyspnea on exertion Respiratory: Respiratory: Reports cough (Chronic mildly productive cough), Denies dyspnea and Denies dyspnea on exertion Gastrointestinal: Gastrointestinal: Denies abdominal pain, Reports hematochezia (blood in toilet bowel when she strains.) and Reports constipation Genitourinary: Genitourinary: Denies hematuria Musculoskeletal: Musculoskeletal: Reports arthralgias (Legs and feet hurt) Integumentary/Breasts: Skin/Breast: Reports rash (Intertriginous rash of perineum) Neurologic: Reports confusion and Reports weakness Psychiatric: Psychiatric: Reports confusion Endocrine: Endocrine: Reports fatigue, Denies palpitations and Reports other (Diabetes has been very hard to control recently) Hematologic/Lymphatic: Hematologic/Lymphatic: Denies easy bleeding Exam Narrative: Exam Narrative: Elderly white female laying comfortably in bed. Const: General: comfortable and no acute distress Orientation/consciousness: patient oriented x3 HENMT: Head: normal to inspection, normocephalic and atraumatic Ears: hearing grossly normal bilaterally General nose exam: no epistaxis Mouth: Yes moist mucous membranes abnormal Eyes: EOM: EOMs intact bharath
[2019-12-26] MEDS: METOPROLOL TARTRATE 25 MG TABLET 75 MG PO ×2 (11:03→20:28)
--- NOTE | 2019-12-26 11:43 | PCPTNOTE ---
The patient treatment was not able to be completed on 12-26-2019 due to R.N. advised to see patient this afternoon due to increased heart rate. Will plan to continue treatment per plan of care.
--- NOTE | 2019-12-26 11:45 | PCOTNOTE ---
Per RN, patient's HR elevated and just gave meds. RN asked for Occupational therapy to wait to see patient till this PM. Will continue plan of care then.
[2019-12-26 13:08] LABS: Add Urine Microscopic? YES; Appearance Urine Cloudy (Clear); Bacteria Urine Trace /hpf; Bilirubin Urine Negative (Negative); Blood Urine 3+ (Negative); Color Urine Yellow (Yellow); Glucose Urine UA 3+ mg/dL (Negative); Ketones Urine Negative (Negative); Leukocyte Esterase Ur 2+ LEU/UL (NEGATIVE); Mucus Urine Rare /lpf; Nitrate Urine Negative (Negative); Protein Urine 1+ mg/dL (Negative); RBC Urine >75 /hpf (0-2); Specific Grav Ur 1.014 (1.001-1.035); Squamous Epithelial Cell Urine Many /hpf (Few); Urobilinogen Urine Negative mg/dL (<2.0); WBC Urine >75 /hpf (0-3)
--- NOTE | 2019-12-26 13:18 | PM.IMPN ---
Progress Note: A&P Assessment and Plan (1) Acute kidney injury superimposed on CKD: Code(s): N17.9 - Acute kidney failure, unspecified; N18.9 - Chronic kidney disease, unspecified Status: Acute Assessment and Plan: Bun/ Cr at patient's baseline now. Avoid nephrotoxins Daily labs. BP goal 130/80 (2) New onset atrial flutter: Code(s): I48.92 - Unspecified atrial flutter Status: Acute Assessment and Plan: Resolved Cardizem drip stopped (3) Chronic diastolic CHF (congestive heart failure): Code(s): I50.32 - Chronic diastolic (congestive) heart failure Status: Acute Assessment and Plan: Does not appeared to be in exacerbation. (4) Hypertension: Qualifiers: Hypertension type: unspecified Qualified Code(s): I10 - Essential (primary) hypertension Code(s): I10 - Essential (primary) hypertension Status: Chronic Assessment and Plan: Well controlled Continue home meds Continue to monitor. (5) Gastro-esophageal reflux disease without esophagitis: Code(s): K21.9 - Gastro-esophageal reflux disease without esophagitis Status: Chronic Assessment and Plan: Stable. 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 use Qualified Code(s): E11.65 - Type 2 diabetes mellitus with hyperglycemia; Z79.4 - long term care pharmacist (current) use of insulin Code(s): E11.65 - Type 2 diabetes mellitus with hyperglycemia Status: Acute Assessment and Plan: Continue to monitor Accuchecks ACHS ISS Lantus (7) Sepsis: Qualifiers: Sepsis type: sepsis due to unspecified organism Sepsis acute organ dysfunction status: with acute organ dysfunction Severe sepsis acute organ dysfunction type: acute renal failure Acute renal failure type: unspecified Severe sepsis shock status: without septic shock Qualified Code(s): A41.9 - Sepsis, unspecified organism; R65.20 - Severe sepsis without septic shock; N17.9 - Acute kidney failure, unspecified Code(s): A41.9 - Sepsis, unspecified organism Status: Acute Assessment and Plan: Ruled out Negative Ua cx. (8) Urinary tract infection: Qualifiers: Hematuria presence: without hematuria Urinary tract infection type: acute cystitis Qualified Code(s): N30.00 - Acute cystitis without hematuria Code(s): N39.0 - Urinary tract infection, site not specified Status: Acute Assessment and Plan: Negative Ua cx with discontinue Rocephin. (9) Atrial fibrillation with rapid ventricular response: Code(s): I48.91 - Unspecified atrial fibrillation Status: Acute Assessment and Plan: Rate controlled Subjective Date/time seen: 12/26/19 13:18 I feel good. Review of Systems Review of Systems: Narrative: Patient with no complains this morning. Exam Narrative: Exam Narrative: Lying in bed. Const: General: cooperative, healthy appearing, comfortable, no acute distress, alert, awake and Physically active Nutritional Appearance: average body habitus and well nourished Orientation/consciousness: patient oriented x3 HENMT: Head: normal to inspection and normocephalic Ears: hearing grossly normal bilaterally General nose exam: Normal external nose present Eyes: General: appearance normal, both eyes and all related structures Pupils: Equal, round and reactive pupils present EOM: EOMs intact bilaterally Neck: Neck: normal visual inspection, full ROM, no lymphadenopathy and no JVD Resp: Effort & Inspection: normal respiratory effort Auscultation: clear to auscultation bilaterally Cardio: Jugular venous distension: no JVD Rate: regular rate Rhythm: regular rhythm GI: Inspection: normal to inspection GI Palp: Yes Soft to palpation and Yes No hepatosplenomegaly present Skin: General skin exam: normal color Lesions: no lesions R
[2019-12-26 15:43] LABS: Glucose Point of Care 251 (65-105)
[2019-12-26 15:50] LABS: Basophils Percent Auto 0.3 % (0.2-1.2); Eosinophils Absolute Auto 0.2 K/mm3 (0-0.3); Eosinophils Percent Auto 1.9 % (0-4.4); Hematocrit 34.1 % (37.0-47.0); Hemoglobin 10.4 g/dL (12.0-15.0); Immature Granulocyte Absolute 0.09 K/mm3 (0.00-0.031); Immature Granulocyte Percent A 0.8 % (0-0.5); Lymphocytes Percent Auto 10.9 % (18.3-44.2); Mean Corpuscular HGB Conc 30.5 g/dl (32-36); Mean Corpuscular Hemoglobin 30.2 pg (26-34); Mean Corpuscular Volume 99.1 fl (80-100); Mean Platelet Volume 10.9 fl (7.4-10.4); Monocytes Absolute Auto 1.1 K/mm3 (0.1-0.6); Monocytes Percent Auto 9.1 % (2.6-8.5); Neutrophils Absolute Auto 9.2 K/mm3 (1.3-6.7); Platelet Count Result 233 k/mm3 (150-375); Red Blood Count 3.44 M/mm3 (4.2-5.4); Red Cell Distribution Width 16.5 % (11.5-14.5)
[2019-12-26 16:01] LABS: Anion Gap 8 mmol/L (8-16); Blood Urea Nitrogen 30 mg/dL (7-17); Carbon Dioxide 23 mmol/L (22-30); Chloride 107 mmol/L (98-107); Estimated CRCL calculation 34 ml/min; Estimated Glomerular Filt Rate 34; Glucose 291 mg/dL (65-105); Potassium 4.7 mmol/L (3.4-5.0); Sodium 138 mmol/L (137-145)
[2019-12-26 16:42] LABS: Glucose Point of Care 271 (65-105)
[2019-12-26] MEDS: SENNOSIDES 8.6 MG TABLET PO (17:15)
[2019-12-26] MEDS: INSULIN GLARGINE (*BKC) 100 UNITS/ML 51 UNITS SUB-Q (20:01)
[2019-12-26 21:02] LABS: Glucose Point of Care 256 (65-105)
[2019-12-27] VITALS (10 sets, daily range): BP systolic 119–149; BP diastolic 70–95; PULSE 66–135; RESP 20–24; TEMP 36–36.6; O2SAT 92–96
[2019-12-27 08:39] LABS: Glucose Point of Care 191 (65-105)
[2019-12-27] MEDS: DULoxetine HCL 30 MG CAPSULE.DR PO (10:48)
[2019-12-27] MEDS: busPIRone HCL 5 MG TABLET PO (10:48)
[2019-12-27] MEDS: MEMANTINE 10 MG TABLET PO (10:48)
[2019-12-27] MEDS: MIRABEGRON 25 MG ER TABLET PO (10:48)
[2019-12-27] MEDS: METOPROLOL TARTRATE 25 MG TABLET 75 MG PO (10:48)
[2019-12-27] MEDS: ATORVASTATIN 20 MG TABLET PO (10:48)
[2019-12-27] MEDS: OMEGA 3 POLYUNSAT FATTY ACIDS 1 GM CAP PO ×2 (10:48→12:37)
[2019-12-27] MEDS: PANTOPRAZOLE SOD SESQUIHYDRATE 20 MG TAB PO (10:48)
[2019-12-27] MEDS: ENOXAPARIN 40 MG/0.4 ML SYRINGE SUB-Q (10:49)
[2019-12-27] MEDS: TOLNAFTATE 1% POWDER 45 GM BTL 1 APPLIC TOPICAL (10:50)
[2019-12-27] MEDS: polyethylene glycoL 3350 17 GM POWD.PACK PO (11:01)
[2019-12-27 12:00] LABS: Glucose Point of Care 338 (65-105)
[2019-12-27] MEDS: INSULIN ASPART (*BKC) 100 UNITS/ML SUB-Q (12:36)
--- NOTE | 2019-12-27 12:52 | PM.DS ---
DS: Admitting Diagnosis Admitting Diagnosis Admitting Diagnosis: Sepsis, Hyperglycemia, A fib with RVR, UTI DS: Discharge Diagnosis Discharge Diagnosis (1) Acute kidney injury superimposed on CKD: Code(s): N17.9 - Acute kidney failure, unspecified; N18.9 - Chronic kidney disease, unspecified Status: Acute Assessment and Plan: Likely pre renal in nature. (2) Chronic diastolic CHF (congestive heart failure): Code(s): I50.32 - Chronic diastolic (congestive) heart failure Status: Acute Assessment and Plan: Stable. (3) RLS (restless legs syndrome): Code(s): G25.81 - Restless legs syndrome Status: Chronic Assessment and Plan: Continue home meds. (4) Gastro-esophageal reflux disease without esophagitis: Code(s): K21.9 - Gastro-esophageal reflux disease without esophagitis Status: Chronic Assessment and Plan: Stable continue home meds. (5) Urinary tract infection: Qualifiers: Hematuria presence: without hematuria Urinary tract infection type: acute cystitis Qualified Code(s): N30.00 - Acute cystitis without hematuria Code(s): N39.0 - Urinary tract infection, site not specified Status: Acute Assessment and Plan: Ruled out with negative Ua cx (6) Acute dehydration: Code(s): E86.0 - Dehydration Status: Acute Assessment and Plan: Gentle iv fluid hydration. (7) Atrial fibrillation with rapid ventricular response: Code(s): I48.91 - Unspecified atrial fibrillation Status: Acute Assessment and Plan: Cardiology consulted Patient's heart rate was able to be controlled with Metoprolol (8) NIURKA (obstructive sleep apnea): Code(s): G47.33 - Obstructive sleep apnea (adult) (pediatric) Status: Acute Assessment and Plan: Unclear if use of CPAP (9) Altered mental status: Code(s): R41.82 - Altered mental status, unspecified Status: Acute Assessment and Plan: Resolved Likely delirium secondary to dehydration. DS: Summary Hospital Course Reason for hospitalization: AMS Hospital Course: Patient was initially admitted due to abnormal urine analysis, AMS, SOB, patient was found to have A.flutter with RVR. She was started on drip for rate controlled and antibiotics. Patient's haert rate was controlled she was weaned off of drip and placed on Metoprolol, Cardiology was consulted. Patient's Ua cx was negative for growth. Antibioitcs were discontinued. Patient participated with PT/OT and was discharged to SNF Status at Discharge Cognitive/behavioral status at discharge: Good Functional status at discharge: independent ambulation Overall status at discharge: patient is back to baseline Time Spent with Patient Time attestation: Total time spent providing and/or coordinating discharge services: Time spent: Greater than 30 minutes Exam Narrative: Exam Narrative: Lying in bed. Const: General: cooperative, healthy appearing, comfortable, alert, awake and Physically active Nutritional Appearance: average body habitus Orientation/consciousness: patient oriented x3 HENMT: Head: normal to inspection and normocephalic Ears: hearing grossly normal bilaterally General nose exam: Normal external nose present Face and sinus: normal facial exam Eyes: General: appearance normal, both eyes and all related structures Pupils: Equal, round and reactive pupils present EOM: EOMs intact bilaterally Neck: Neck: full ROM, no lymphadenopathy and supple Resp: Auscultation: clear to auscultation bilaterally Cardio: Rate: regular rate Rhythm: regular rhythm GI: Inspection: normal to inspection GI Palp: Yes Soft to palpation and Yes No hepatosplenomegaly present Skin: General skin exam: normal color Rashes: no rashes Neuro: General: patient oriented x3 and CN's II-XI intact bilaterally Cranial nerves: Yes CN's II-XII intact bilaterally and Yes Bilaterally intact EOM present
--- NOTE | 2019-12-27 16:08 | PM.PNCARD ---
Progress Note: A&P Assessment and Plan (1) New onset atrial flutter: Code(s): I48.92 - Unspecified atrial flutter Status: Acute Assessment and Plan: New onset atrial flutter in the setting of sepsis in with multiple risk factors to develop atrial arrhythmias. Heart rate now better controlled on Metoprolol tartrate 75 mg every 12 hours. CHADS2-VASC score = 6, at at a higher risk for cardioembolic events. She has had some rectal bleeding recently, presumably from her hemorrhoids, lee not to anticoagulate. Constipation treated with MiraLax. Re-evaluate for suitability for anticoagulation in the office at a later date. No falls, or h/o CVA. (2) Chronic diastolic CHF (congestive heart failure): Code(s): I50.32 - Chronic diastolic (congestive) heart failure Status: Acute Assessment and Plan: Chronic diastolic heart failure appears controlled. Was not overloaded despite rehydration. Today she does has some lower extremity edema but her legs have been dependent for the last 4 hours. Lungs are relatively clear. Furosemide will be resumed at discharge. (3) Acute kidney injury superimposed on CKD: Code(s): N17.9 - Acute kidney failure, unspecified; N18.9 - Chronic kidney disease, unspecified Status: Acute Assessment and Plan: BUN improved w/ hydration (4) Abdominal wall cellulitis: Code(s): L03.311 - Cellulitis of abdominal wall Status: Acute Assessment and Plan: Cellulitis, poss UTI, sepsis, improving. Additional Plan OK to discharge from cardiac standpoint. See discharge instructions for follow-up. Plan discussed with Dr. Geronimo [id number] Subjective Date/time seen: 12/27/19 16:08 Interval history: Follow-up for: Atrial flutter in the setting of sepsis, chronic diastolic heart failure, acute kidney injury and superimposed on CKD. Date of service: 12/27/2019 Subjective: Up in chair. Denied chest discomfort. Breathing has improved. No lightheadedness or palpitations. The bottom of her feet hurt. Review of Systems Constitutional: Constitutional: Reports fatigue and Reports weakness Eyes: Eyes: Denies blind spots and Denies blurry vision ENT: Denies epistaxis Cardiovascular: Cardiovascular: Denies chest pain, Reports pedal edema, Reports leg edema, Denies lightheadedness, Denies palpitations, Denies dyspnea and Denies dyspnea on exertion Respiratory: Respiratory: Reports cough (Chronic mildly productive cough), Denies dyspnea and Denies dyspnea on exertion Gastrointestinal: Gastrointestinal: Denies abdominal pain and Reports hematochezia (blood in toilet bowel when she strains.) Genitourinary: Genitourinary: Denies hematuria Musculoskeletal: Musculoskeletal: Reports arthralgias (Legs and feet hurt) Integumentary/Breasts: Skin/Breast: Reports rash (Intertriginous rash of perineum) Neurologic: Reports weakness Psychiatric: Psychiatric: Denies anxiety Endocrine: Endocrine: Reports fatigue, Denies palpitations and Reports other (Diabetes has been very hard to control recently) Hematologic/Lymphatic: Hematologic/Lymphatic: Denies easy bleeding Allergic/Immunologic: Allergic/Immunologic: Denies throat swelling, Denies tongue swelling and Denies wheezing Exam Narrative: Exam Narrative: Elderly white female laying comfortably in bed. Const: General: comfortable and no acute distress Orientation/consciousness: patient oriented x3 HENMT: Head: normal to inspection, normocephalic and atraumatic Ears: hearing grossly normal bilaterally General nose exam: no epistaxis Mouth: Yes moist mucous membranes abnormal Eyes: EOM: EOMs intact bilaterally Neck: Neck: supple Resp: Effort & Inspection: normal respiratory effort and able to speak in complete sentences Auscultation: rales (Faint bibasilar) Cardio: Rhythm:
== END 2019-12-27 17:58 | DRG 683 ==
LOC: ANHED 18:42 → ANHIMU 21:15
PROVIDERS: Emergency Medicine; Family Medicine; Student in an Organized Health Care Education/Training Program; Admitting Provider Family Medicine; Emergency Provider Emergency Medicine; PCP Family Medicine; Visit Provider Internal Medicine
DX: N17.9 Acute kidney failure, unspecified (principal); I13.0 Hypertensive heart and chronic kidney disease with heart failure and stage 1 through stage 4 chronic kidney disease, or unspecified chronic kidney disease; Q21.1 Atrial septal defect; I50.32 Chronic diastolic (congestive) heart failure; F33.9 Major depressive disorder, recurrent, unspecified; F05 Delirium due to known physiological condition; F03.90 Unspecified dementia, unspecified severity, without behavioral disturbance, psychotic disturbance, mood disturbance, and anxiety; D64.9 Anemia, unspecified; E11.22 Type 2 diabetes mellitus with diabetic chronic kidney disease; N18.30 Chronic kidney disease, stage 3 unspecified; I48.91 Unspecified atrial fibrillation; E87.5 Hyperkalemia; E86.0 Dehydration; E55.9 Vitamin D deficiency, unspecified; Z86.718 Personal history of other venous thrombosis and embolism; N39.3 Stress incontinence (female) (male); K21.9 Gastro-esophageal reflux disease without esophagitis; G47.33 Obstructive sleep apnea (adult) (pediatric); M85.80 Other specified disorders of bone density and structure, unspecified site; E11.51 Type 2 diabetes mellitus with diabetic peripheral angiopathy without gangrene; Z79.4 Long term (current) use of insulin; G25.81 Restless legs syndrome; J30.2 Other seasonal allergic rhinitis; E11.65 Type 2 diabetes mellitus with hyperglycemia; B37.9 Candidiasis, unspecified; E11.42 Type 2 diabetes mellitus with diabetic polyneuropathy; Z79.82 Long term (current) use of aspirin; L30.4 Erythema intertrigo; K59.00 Constipation, unspecified; F41.9 Anxiety disorder, unspecified; Z91.19 Patient's noncompliance with other medical treatment and regimen; E66.01 Morbid (severe) obesity due to excess calories; Z68.38 Body mass index [BMI] 38.0-38.9, adult
CPT/HCPCS: 36415; 51701; 71045; 71046; 80048; 80053; 80202; 81001; 82010; 82565; 82948; 83605; 83735; 84100; 84439; 84443; 84480; 84484; 85025; 85027; 85610; 85730; 87040; 87086; 87635; 93005; 93306; 96361; 96365; 96366; 96367; 96368; 96372; 96375; 96376; 97110; 97116; 97161; 97165; 97530; 97535; 99285; A9270; C9803; G0378; J0131; J0696; J1450; J1650; J1815; J2060; J3370; J7030; U0003